=== PATIENT | female | born 1995 | race Caucasian/White ===

== ENCOUNTER 2019-04-03 13:20 | Emergency (ER) | payer BC, SELFPAY ==
--- NOTE | ~2019-04-03 | XR_ITS ---
EXAMINATION: XR wrist LT min 3V EXAM DATE: 04/03/2019 13:50 INDICATION: Initial encounter following injury, with pain of the left wrist. TECHNIQUE: Left wrist frontal, frontal with ulnar deviation, oblique and lateral projections obtained and reviewed. There is no prior study for comparison. FINDINGS: Left wrist scapholunate joint space is maintained. Mild ulnar minus variance. There are no acute fractures or dislocations identified. There is no subcutaneous gas. The soft tissue is unrem arkable. There are no radiopaque foreign bodies. IMPRESSION: No acute osseous findings. Reviewed, dictated and finalized at location B. [employer] IMPRESSION: No acute osseous findings.
[2019-04-03 13:38] VITALS: BP 131/66; PULSE 90; RESP 16; TEMP 37.1; O2SAT 100
--- NOTE | 2019-04-03 13:53 | ED.UPPEXIN ---
HPI - Extremity Injury (Upper) General Chief Complaint: Extremity Injury, Upper Stated Complaint: Fall left wrist/hand pain Time Seen by Provider: 04/03/19 13:53 Source: patient and RN notes reviewed Mode of arrival: ambulatory Limitations: no limitations History of Present Illness HPI narrative: 23-year-old female who presents to express care with complaints of injury to her left wrist area from fall which occurred this morning.Patient states pain with some swelling to the radial aspect of her left wrist, strong radial pulse, nail beds of left hand have brisk capillary refill, denies any tingling or numbness to her left hand or finger, increase pain with palpation and any movement of left wrist. Patient describes her pain as constant ache rates her pain a 8/10, has taken some Ibuprofen for her discomfort. MD complaint: injury to: left and wrist Onset (ago): hour(s) (this morning) Other Extremity Injury: Left: wrist Other injuries: none Handedness: right Place: home Severity: severe Severity scale (1-10): 8 Relieving factors: none Exacerbating factors: movement of extremity Context: fall Associated symptoms: denies other symptoms Treatments prior to arrival: NSAIDS Related Data Home Medications Medication Instructions Recorded Confirmed No Home Medications 04/03/19 04/03/19 Allergies Allergy/AdvReac Type Severity Reaction Status Date / Time No Known Allergies Allergy Verified 04/03/19 13:52 Review of Systems Review of Systems: Narrative: CONSTITUTIONAL: Denies fever, chills, or sweats. EYES: Denies visual changes, redness, or discharge. ENT: Denies rhinorrhea, congestion, sore throat, or otalgia. CARDIOVASCULAR: Denies chest pain, palpitations, or edema. RESPIRATORY: Denies cough or dyspnea. GASTROINTESTINAL: Denies abdominal pain, nausea, vomiting, or diarrhea. GENITOURINARY: Denies dysuria or hematuria. SKIN: Denies rash or itching. MUSCULOSKELETAL: Denies back pain,positive pain to left radial wrist area , or myalgia. NEUROLOGIC: Denies headache, numbness, or weakness. PSYCHIATRIC: Denies anxiety or depression. All systems reviewed & are unremarkable except as noted in HPI and below PMFSH Social History Social History (Updated 04/06/19 @ 10:25 by Sofia Joseph NP) Smoking status: Never smoker Living arrangements: with family Gender identity (if verbalized by the patient): Female Comments At time of signature, agree with nursing past medical, surgical, social and family history. There is no relevant family history pertinent to the presenting complaint Exam Narrative: Exam Narrative: GENERAL: Well-appearing, well-nourished, and in no acute distress. HEAD: Normocephalic, atraumatic. EYES: PERRLA and EOMI. ENT: Nares clear, no rhinorrhea or epistaxis. Mucous membranes moist. NECK: Supple. CHEST: Clear to auscultation. No respiratory distress. HEART: Regular rate and rhythm. No murmur heard. Normal peripheral pulses. ABDOMEN: Soft, nontender, nondistended, normal active bowel sounds. EXTREMITIES: Normal range of motion. No edema.With exception of pain and minimal swelling to the radial aspect of her left wrist. Patient has strong left radial pulse, increase pain with any movement of left wrist, denies any tingling or numbness to her left hand or fingers, nail beds left hand have brisk capillary refill. SKIN: Warm, dry, no rash. NEURO: No focal deficits. Alert and oriented x3. Course Vital Signs Vital signs: Vital Signs Temperature 37.1 C 04/03/19 13:38 Pulse Rate 90 04/03/19 13:38 Respiratory Rate 16 04/03/19 13:38 Blood Pressure 131/66 04/03/19 13:38 Pulse Oximetry 100 04/03/19 13:38 Temperature 37.1 C 04/03/19 13:38 Pulse Rate 90 04/03/19 13:38 Respiratory Rate 16 04/03/19 13:38 Blood Pressure 131/66 04/03/19 13:38 Pulse Oximetry 100 04/03/19 13:38 MDM - Extremity Injury (Upper) Differential Diagnosis Differential diagnosis: Likely sprain and stra
== END 2019-04-03 14:20 | disposition home or self-care (01) ==
PROVIDERS: Emergency Provider Registered Nurse
DX: S63.502A Unspecified sprain of left wrist, initial encounter (principal); S66.912A Strain of unspecified muscle, fascia and tendon at wrist and hand level, left hand, initial encounter; W19.XXXA Unspecified fall, initial encounter
CPT/HCPCS: 73110; 99203; G0463

== ENCOUNTER 2019-12-20 14:37 | Emergency (ER) | payer BC, SELFPAY ==
[2019-12-20 14:45] VITALS: BP 137/70; PULSE 127; RESP 20; TEMP 37; O2SAT 100
--- NOTE | 2019-12-20 15:00 | ED.GENADULT ---
HPI - General Adult General Chief complaint: Urogenital-Female Stated complaint: blood in urine and stomach maria t Time Seen by Provider: 12/20/19 15:00 Source: patient and RN notes reviewed Mode of arrival: ambulatory Limitations: no limitations History of Present Illness HPI narrative: 24-year-old female who presents to [facility] care with complaints of blood in urine, frequency, and burning with urination since 399 today. Patient denies any fevers, chills or sweats, denies any nausea or vomiting or diarrhea. Patient states that she has burning with urination describes her pain as 5/10, and states that she has noted hematuria when she urinates. Patient denies any suprapubic pain or any CVA tenderness. MD complaint: urinary symptoms Onset (ago): hour(s) (since 399 today) Location: genitals Radiation: non-radiation Severity: moderate Severity scale (1-10): 5 Quality: burning Pain Consistency: intermittent Relieving factors: none Exacerbating factors: other (urination) Associated symptoms: denies other symptoms Treatments prior to arrival: other Related Data Allergies Allergy/AdvReac Type Severity Reaction Status Date / Time No Known Allergies Allergy Verified 12/20/19 15:08 Review of Systems Review of Systems: Narrative: CONSTITUTIONAL: Denies fever, chills, or sweats. EYES: Denies visual changes, redness, or discharge. ENT: Denies rhinorrhea, congestion, sore throat, or otalgia. CARDIOVASCULAR: Denies chest pain, palpitations, or edema. RESPIRATORY: Denies cough or dyspnea. GASTROINTESTINAL: Denies abdominal pain, nausea, vomiting, or diarrhea. GENITOURINARY: Positive dysuria or hematuria. SKIN: Denies rash or itching. MUSCULOSKELETAL: Denies back pain, joint pain, or myalgia, denies any CVA tenderness NEUROLOGIC: Denies headache, numbness, or weakness. PSYCHIATRIC: Denies anxiety or depression. All systems reviewed & are unremarkable except as noted in HPI and below PMFSH Past Medical History Medical History (Updated 12/20/19 @ 18:55 by Sofia Joseph NP) No significant medical problems Surgical History Surgical History (Updated 12/20/19 @ 18:53 by Sofia Joseph NP) No history of previous surgery Social History Social History (Updated 12/20/19 @ 15:37 by Sofia Joseph NP) Smoking status: Never smoker Living arrangements: with family Occupation/Education: student Gender identity (if verbalized by the patient): Female Comments At time of signature, agree with nursing past medical, surgical, social history. There is no relevant family history pertinent to the presenting complaint Exam Narrative: Exam Narrative: GENERAL: Well-appearing, well-nourished, and in no acute distress. HEAD: Normocephalic, atraumatic. EYES: PERRLA and EOMI. ENT: Nares clear, no rhinorrhea or epistaxis. Mucous membranes moist. NECK: Supple.no lymphadenopathy CHEST: Clear to auscultation. No respiratory distress. HEART: Regular rate and rhythm. No murmur heard. Normal peripheral pulses. ABDOMEN: Soft, nontender, nondistended, normal active bowel sounds.no abdominal tenderness or CVA tenderness. EXTREMITIES: Normal range of motion. No edema. SKIN: Warm, dry, no rash. NEURO: No focal deficits. Alert and oriented x3. Course Vital Signs Vital signs: Vital Signs Temperature 37.0 C 12/20/19 14:45 Pulse Rate 127 H 12/20/19 14:45 Respiratory Rate 20 12/20/19 14:45 Blood Pressure 137/70 12/20/19 14:45 Pulse Oximetry 100 12/20/19 14:45 Temperature 37.0 C 12/20/19 14:45 Pulse Rate 127 H 12/20/19 14:45 Respiratory Rate 20 12/20/19 14:45 Blood Pressure 137/70 12/20/19 14:45 Pulse Oximetry 100 12/20/19 14:45 Medical Decision Making Differential Diagnosis Differential Diagnosis: Urinary tract infection, hematuria, burning with urination, dysuria Medical Records Medical records reviewed: Yes I reviewed the patient's medical records. Vital Signs Vital Signs: Vital Signs Tempera
== END 2019-12-20 15:47 | disposition home or self-care (01) ==
PROVIDERS: Emergency Provider Registered Nurse
DX: N39.0 Urinary tract infection, site not specified (principal)
CPT/HCPCS: 81003; 87086; 87088; 99213; G0463

== ENCOUNTER 2020-07-02 12:41 | Emergency (ER) | payer OTHER, BC, SELFPAY ==
--- NOTE | ~2020-07-02 | XR_ITS ---
XR forearm RT 2V DATE: 07/02/2020 13:03 INDICATION: Dropped 40 pound box on arm. Right forearm pain TECHNIQUE: AP and lateral views COMPARISON: None FINDINGS: No fracture or dislocation. No periosteal reaction or bone destruction. Normal alignment at the elbow and wrist joints. IMPRESSION: Negative Reviewed, dictated and finalized at location A. IMPRESSION: Negative
[2020-07-02 12:45] VITALS: BP 120/53; PULSE 77; RESP 20; TEMP 36.7; O2SAT 99
--- NOTE | 2020-07-02 13:07 | ED.UPPEXIN ---
HPI - Extremity Injury (Upper) General Chief Complaint: Extremity Injury, Upper Stated Complaint: right arm injury Time Seen by Provider: 07/02/20 13:07 Source: patient Mode of arrival: ambulatory History of Present Illness HPI narrative: PATIENT WAS AT [employer] AT [employer] AND DROPPED A 40 POUND BOX OF HER RIGHT FOREARM. PATIENT PRESENTS WITH RIGHT FOREARM PAIN. NO SWELLING NO DEFORMITY NO OPEN AREAS NO BRUISING NOTED. MD complaint: injury to: right and forearm Other Extremity Injury: Right: forearm Other injuries: none Handedness: right Place: work Severity: mild Severity scale (1-10): 2 Relieving factors: immobilization Exacerbating factors: movement of extremity Context: direct blow Associated symptoms: denies other symptoms Related Data Home Medications Medication Instructions Recorded Confirmed No Home Medications 07/02/20 07/02/20 Allergies Allergy/AdvReac Type Severity Reaction Status Date / Time No Known Allergies Allergy Verified 12/20/19 15:08 Review of Systems Review of Systems: Narrative: CONSTITUTIONAL: Denies fever, chills, or sweats. EYES: Denies visual changes, redness, or discharge. ENT: Denies rhinorrhea, congestion, sore throat, or otalgia. CARDIOVASCULAR: Denies chest pain, palpitations, or edema. RESPIRATORY: Denies cough or dyspnea. GASTROINTESTINAL: Denies abdominal pain, nausea, vomiting, or diarrhea. GENITOURINARY: Denies dysuria or hematuria. SKIN: Denies rash or itching. MUSCULOSKELETAL: Denies back pain, joint pain, or myalgia. NEUROLOGIC: Denies headache, numbness, or weakness. PSYCHIATRIC: Denies anxiety or depression. PMFSH Past Medical History Medical History (Updated 07/02/20 @ 13:13 by FEDE Hendricks) No significant medical problems Surgical History Surgical History (Updated 12/20/19 @ 18:53 by Sofia Joseph NP) No history of previous surgery Social History Social History (Updated 12/20/19 @ 15:37 by Sofia Joseph NP) Smoking status: Never smoker Gender identity (if verbalized by the patient): Female Comments At time of signature, agree with nursing past medical, surgical, social and family history. There is no relevant family history pertinent to the presenting complaint Exam Narrative: Exam Narrative: GENERAL: Well-appearing, well-nourished, and in no acute distress. HEAD: Normocephalic, atraumatic. EYES: PERRLA and EOMI. ENT: Nares clear, no rhinorrhea or epistaxis. Mucous membranes moist. NECK: Supple. CHEST: Clear to auscultation. No respiratory distress. HEART: Regular rate and rhythm. No murmur heard. Normal peripheral pulses. ABDOMEN: Soft, nontender, nondistended, normal active bowel sounds. EXTREMITIES: Normal range of motion. No edema. HAND EXAM - Skin intact, no laceration, no swelling, no erythema, normal digit cascade with flexion of fingers, median nerve, ulnar nerve, radial nerve is intact. Normal sensation of each side of each finger, can perform `ok? sign, `cross over finger test of index and middle fingers? and `thumbs up? sign, normal thumb opposition, no scissoring. good capillary refill and radial pulse. normal flexion and extension of fingers and wrist. normal supination at wrist. Normal forearm and elbow exam. SKIN: Warm, dry, no rash. NEURO: No focal deficits. Alert and oriented x3. Bernice Coma Scale Eye Opening: Spontaneous 4 Bernice Coma Scale Motor: Obeys Commands 6 Bernice Coma Scale Verbal: Oriented 5 [place] Coma Scale Total 15 Course Vital Signs Vital signs: Vital Signs Temperature 36.7 C 07/02/20 12:45 Pulse Rate 77 07/02/20 12:45 Respiratory Rate 07/02/20 12:45 Blood Pressure 120/53 L 07/02/20 12:45 Pulse Oximetry 99 07/02/20 12:45 Temperature 36.7 C 07/02/20 12:45 Pulse Rate 77 07/02/20 12:45 Respiratory Rate 20 07/02/20 12:45 Blood Pressure 120/53 L 07/02/20 12:45 Pulse Oximetry 99 07/02/20 12:45 MDM - Extremity Injury (Upper) Differential Diagno
== END 2020-07-02 13:44 | disposition home or self-care (01) ==
PROVIDERS: Emergency Provider Nurse Practitioner Family
DX: S50.11XA Contusion of right forearm, initial encounter (principal); W20.8XXA Other cause of strike by thrown, projected or falling object, initial encounter
CPT/HCPCS: 73090; 99213; G0463

== ENCOUNTER 2020-09-08 10:39 | Emergency (ER) | payer BC, SELFPAY ==
[2020-09-08 10:43] VITALS: BP 113/46; PULSE 82; RESP 20; TEMP 36.9; O2SAT 100
--- NOTE | 2020-09-08 11:03 | ED.URI ---
HPI - URI/Sore Throat General Chief Complaint: Upper Respiratory Infection Stated Complaint: sore throat Time Seen by Provider: 09/08/20 11:04 Source: patient and RN notes reviewed Mode of arrival: ambulatory Limitations: no limitations History of Present Illness HPI Narrative: 25-year-old female presents with concern for sore throat. Reports symptoms started yesterday. Reports her brother was positive for strep throat earlier this week. She denies rhinorrhea, nasal congestion, headache, nausea, vomiting, cough, fever, body aches, chills. Denies intervention. MD elicited complaint: sore throat Related Data Allergies Allergy/AdvReac Type Severity Reaction Status Date / Time No Known Allergies Allergy Verified 09/08/20 10:54 Review of Systems Review of Systems: Narrative: CONSTITUTIONAL: Denies malaise, chills, sweats, or fever. EYES: Denies visual changes, redness, or discharge. ENT: Denies rhinorrhea, congestion, sinus pain, otalgia. Reports sore throat. CARDIOVASCULAR: Denies chest pain, palpitations, or edema. RESPIRATORY: Denies cough or dyspnea. GASTROINTESTINAL: Denies abdominal pain, nausea, vomiting, diarrhea SKIN: Denies rash or itching. MUSCULOSKELETAL: Denies myalgia. NEUROLOGIC: Denies headache. All systems reviewed & are unremarkable except as noted in HPI and below PMFSH Past Medical History Medical History (Updated 09/08/20 @ 11:18 by Lubna Aden NP) No significant medical problems Surgical History Surgical History (Updated 12/20/19 @ 18:53 by Sofia Joseph NP) No history of previous surgery Social History Social History (Updated 12/20/19 @ 15:37 by Sofia Joseph NP) Smoking status: Never smoker Gender identity (if verbalized by the patient): Female Comments At time of signature, agree with nursing past medical, surgical, social and family history. There is no relevant family history pertinent to the presenting complaint Exam Narrative: Exam Narrative: GENERAL: Well-appearing, well-nourished, and in no acute distress. HEAD: Normocephalic EYES: PERRLA, conjunctivae clear ENT: Nares clear, turbinates erythematous, clear discharge. Mucous membranes moist. TM pearly frias with sharp light reflex bilaterally; no tragal tenderness. Oropharynx erythematous without lesions. Tonsils not enlarged and without exudate, no drooling, no hoarseness, no trismus, uvula midline. NECK: Supple. No lymphadenopathy CHEST: Clear to auscultation, breath sounds equal. No wheezing, rhonchi, rales, or stridor. No respiratory distress, speaks in full sentences. HEART: Regular rate and rhythm. No murmur heard. SKIN: Warm, dry, no rash. NEURO: Alert and oriented x3. PSYCH: Normal mood and affect Course Course Emergency Course: Patient is aware of diagnosis, understands and agrees to treatment plan. Anticipatory guidance given. Patient agrees to follow-up as directed and is aware of reasons to seek care at the emergency department. Portions of this record may have been created with voice recognition software Vital Signs Vital signs: Vital Signs Temperature 98.4 F 09/08/20 10:43 Pulse Rate 82 09/08/20 10:43 Respiratory Rate 20 09/08/20 10:43 Blood Pressure 113/46 L 09/08/20 10:43 Pulse Oximetry 100 09/08/20 10:43 Temperature 98.4 F 09/08/20 10:43 Pulse Rate 82 09/08/20 10:43 Respiratory Rate 20 09/08/20 10:43 Blood Pressure 113/46 L 09/08/20 10:43 Pulse Oximetry 100 09/08/20 10:43 Reviewed. MDM - URI/Sore Throat MDM Narrative Medical decision making narrative: Differential diagnosis considered: Baker virus, strep pharyngitis, allergic rhinitis, upper respiratory tract infection, sinusitis, rhinosinusitis, nasopharyngitis. viral pharyngitis, otitis media, otitis externa, pneumonia, bronchitis, viral cough syndrome, viral syndrome, and influenza. Exam findings show no acute concerns or changes; patient is non-toxic appearing and is in no distress. Patient is ap
== END 2020-09-08 11:22 | disposition home or self-care (01) ==
PROVIDERS: Emergency Provider Nurse Practitioner
DX: J02.9 Acute pharyngitis, unspecified (principal)
CPT/HCPCS: 87081; 87880; 99213; G0463

== ENCOUNTER 2021-10-27 10:04 | Emergency (ER) | payer BC, SELFPAY ==
[2021-10-27 10:11] VITALS: BP 118/64; PULSE 76; RESP 18; TEMP 36.8; O2SAT 100
--- NOTE | 2021-10-27 10:18 | ED.FEMALEGU ---
HPI - Female Genitourinary General Chief complaint: Urogenital-Female Stated complaint: Low Back Pain Time Seen by Provider: 10/27/21 10:20 Source: patient, RN notes reviewed and old records reviewed Mode of arrival: ambulatory Limitations: no limitations History of Present Illness HPI Narrative: 26-year-old female presents to the [facility] with complaints of right lower back pain for 2 to 3 days. No treatment prior to arrival. Patient denies any trauma. No saddle anesthesia. No midline tenderness, no loss or retention of bowel or bladder. Walks with a normal gait. Related Data Allergies Allergy/AdvReac Type Severity Reaction Status Date / Time No Known Allergies Allergy Verified 09/08/20 10:54 Review of Systems Review of Systems: All systems reviewed & are unremarkable except as noted in HPI and below Constitutional: Constitutional: Reports no additional constitutional complaints, Denies chills and Denies fever(s) Eyes: Eyes: Reports no additional eye complaints ENT: Reports system reviewed and no additional complaints, except as documented Cardiovascular: Cardiovascular: Reports no additional cardiovascular complaints Respiratory: Respiratory: Reports no additional respiratory complaints Gastrointestinal: Gastrointestinal: Reports no additional gastrointestinal complaints Genitourinary: Genitourinary: Reports as per HPI (Urinary frequency) Musculoskeletal: Musculoskeletal: Reports as per HPI and Reports back pain Integumentary/Breasts: Skin/Breast: Reports system reviewed and no additional complaints, except as docu Neurologic: Reports system reviewed and no additional complaints, except as documented Psychiatric: Psychiatric: Reports no additional psychiatric complaints Allergic/Immunologic: Allergic/Immunologic: Reports no additional allergic/immunologic complaints PMFSH Past Medical History Medical History No significant medical problems Surgical History Surgical History No history of previous surgery Social History Social History Smoking status: Never smoker Gender identity (if verbalized by the patient): Female Comments At the time of my signature, I reviewed and agree with the nursing past medical, surgical, social, and family history. There is no relevant family history pertinent to the patient complaint. Exam Const: General: healthy appearing, no acute distress and alert Nutritional Appearance: well nourished Orientation/consciousness: patient oriented x3 Limitations: no limitations HENMT: Head: normal to inspection Ears: external ears normal Eyes: General: appearance normal, both eyes and all related structures Pupils: Equal, round and reactive pupils present Neck: Neck: normal visual inspection, no lymphadenopathy and no meningeal signs Chest: Chest palpation & inspection: normal inspection of the chest Resp: Effort & Inspection: normal respiratory effort and no use of accessory muscles Auscultation: clear to auscultation bilaterally, no crackles, no rales, no rhonchi and no wheezes Cardio: Rate: regular rate Rhythm: regular rhythm GI: GI Palp: Yes Soft to palpation and No Tenderness to palpation present (GI) Back/Spine/Pelvis: Cervical Spine: normal cervical lordosis Thoracic/Lumbar Spine: thoracic and lumbar spine normal to inspection Skin: General skin exam: normal color Rashes: no rashes Wounds: no wounds Neuro: General: patient oriented x3, moves all extremities, no meningeal signs and no focal motor deficits Cranial nerves: Yes Equal, round and reactive pupils present Speech: normal speech Gait exam (Neuro): Normal gait present Extrem: General: normal to inspection, full ROM and capillary refill normal Psych: Appearance: grossly normal and well kempt Mental Status: mental status grossly nalini
== END 2021-10-27 10:35 | disposition home or self-care (01) ==
PROVIDERS: Emergency Provider Nurse Practitioner
DX: M54.50 Low back pain, unspecified (principal)
CPT/HCPCS: 81003; 99213; G0463

== ENCOUNTER 2022-03-16 16:05 | Emergency (ER) | payer BC, SELFPAY ==
--- NOTE | 2022-03-16 16:10 | ED.FEMALEGU ---
HPI - Female Genitourinary General Chief complaint: Urogenital-Female Stated complaint: blood in urine Time Seen by Provider: 03/16/22 16:38 Source: patient, RN notes reviewed and old records reviewed Mode of arrival: ambulatory Limitations: no limitations History of Present Illness HPI Narrative: 26-year-old female presents to the [facility] with blood in her urine. Patient denies any other symptoms. patient denies any CVA tenderness. No chest pain. No burning with urination. Denies frequency urgency. No abdominal pain. seen at [facility] prescribe Marlo and Razia For a intestinal infection 3-4 days ago. Related Data Home Medications Medication Instructions Recorded Confirmed ciprofloxacin HCl 500 mg tablet 500 mg PO BID 03/16/22 03/16/22 hydrocodone 5 mg-acetaminophen 325 1 tablet PO Q6-8H PRN Pain 03/16/22 03/16/22 mg tablet metronidazole 500 mg tablet 500 mg PO TID 03/16/22 03/16/22 Allergies Allergy/AdvReac Type Severity Reaction Status Date / Time No Known Allergies Allergy Verified 03/16/22 16:15 Review of Systems Review of Systems: All systems reviewed & are unremarkable except as noted in HPI and below Constitutional: Constitutional: Reports no additional constitutional complaints Eyes: Eyes: Reports no additional eye complaints ENT: Reports system reviewed and no additional complaints, except as documented Cardiovascular: Cardiovascular: Reports no additional cardiovascular complaints, Denies chest pain and Denies dyspnea Respiratory: Respiratory: Reports no additional respiratory complaints, Denies chest congestion, Denies cough and Denies dyspnea Gastrointestinal: Gastrointestinal: Reports no additional gastrointestinal complaints, Denies abdominal pain, Denies nausea and Denies vomiting Genitourinary: Genitourinary: Reports as per HPI Musculoskeletal: Musculoskeletal: Reports no additional musculoskeletal complaints Integumentary/Breasts: Skin/Breast: Reports system reviewed and no additional complaints, except as docu Neurologic: Reports system reviewed and no additional complaints, except as documented Psychiatric: Psychiatric: Reports no additional psychiatric complaints Allergic/Immunologic: Allergic/Immunologic: Reports no additional allergic/immunologic complaints PMFSH Past Medical History Medical History No significant medical problems Surgical History Surgical History No history of previous surgery Social History Social History Smoking status: Never smoker Gender identity (if verbalized by the patient): Female Comments At the time of my signature, I reviewed and agree with the nursing past medical, surgical, social, and family history. There is no relevant family history pertinent to the patient complaint. Exam Const: General: cooperative, healthy appearing, comfortable, no acute distress, well developed, alert and well nourished Nutritional Appearance: well nourished Orientation/consciousness: patient oriented x3 Limitations: no limitations HENMT: Head: normal to inspection Ears: hearing grossly normal bilaterally and external ears normal Face/Nose/Sinus: Normal external nose present, Normal nares present, Normal nasal mucous membranes and turbinates present and normal facial exam Face and sinus: normal facial exam Mouth: Yes Normal oral and palatal mucosa present, Yes lip normal and Yes moist mucous membranes Throat: posterior oropharynx normal and uvula midline Eyes: General: appearance normal, both eyes and all related structures Alignment and Position: alignment normal Periorbital: periorbital findings normal Conjunctivae: conjunctivae normal Pupils: Equal, round and reactive pupils present EOM: EOMs intact bilaterally Neck: Neck: normal visual inspection, full ROM, no lymphadenop
[2022-03-16 16:13] VITALS: BP 131/85; PULSE 98; RESP 16; TEMP 36.9; O2SAT 100
== END 2022-03-16 16:51 | disposition home or self-care (01) ==
PROVIDERS: Emergency Provider Nurse Practitioner
DX: R31.9 Hematuria, unspecified (principal)
CPT/HCPCS: 81003; 87086; 99213; G0463

== ENCOUNTER 2022-07-02 08:02 | Emergency (ER) | payer BC, SELFPAY ==
--- NOTE | ~2022-07-02 | XR_ITS ---
EXAMINATION: XR wrist LT min 3V DATE: 07/02/2022 08:27 INDICATION: Left wrist injury and pain. TECHNIQUE: 4 views of left wrist were obtained. COMPARISON: Left wrist radiographs 04/03/2019 FINDINGS: Bone alignment is normal. No fracture. Joint spaces are normal. IMPRESSION: 1. Normal left wrist. Reviewed, dictated and finalized at location A. IMPRESSION: 1. Normal left wrist.
[2022-07-02 08:10] VITALS: BP 106/61; PULSE 77; RESP 20; TEMP 37.1; O2SAT 100
--- NOTE | 2022-07-02 08:13 | ED.UPPEXIN ---
HPI - Extremity Injury (Upper) General Chief Complaint: Extremity Injury, Upper Stated Complaint: Fall Injury/Left Wrist Time Seen by Provider: 07/02/22 08:13 Source: patient and RN notes reviewed History of Present Illness HPI narrative: Patient is a 27-year-old female presents to urgent care with complaints of left wrist pain due to fall. Patient is left-hand dominant. States that she fell over her dog this morning catching herself with her left hand. Patient has not done anything prior to arrival for pain. No other acute complaints. No acute distress noted. Patient aware of the plan of care. Some parts of this dictation were generated by voice recognition software and may contain typographical and/or grammatical inaccuracies. Related Data Home Medications Medication Instructions Recorded Confirmed No Home Medications 07/02/22 07/02/22 Allergies Allergy/AdvReac Type Severity Reaction Status Date / Time No Known Allergies Allergy Verified 07/02/22 08:27 Review of Systems Review of Systems: CONSTITUTIONAL: Denies fever, chills, or sweats. EYES: Denies visual changes, redness, or discharge. ENT: Denies rhinorrhea, congestion, sore throat, or otalgia. CARDIOVASCULAR: Denies chest pain, palpitations, or edema. RESPIRATORY: Denies cough or dyspnea. GASTROINTESTINAL: Denies abdominal pain, nausea, vomiting, or diarrhea. GENITOURINARY: Denies dysuria or hematuria. SKIN: Denies rash or itching. MUSCULOSKELETAL: Reports of left wrist pain due to fall NEUROLOGIC: Denies headache, numbness, or weakness. PSYCHIATRIC: Denies anxiety or depression. All other systems reviewed are negative, except as documented in HPI. [facility] Past Medical History Medical History No significant medical problems Surgical History Surgical History No history of previous surgery Social History Social History Smoking status: Never smoker Living arrangements: with family Occupation/Education: student Gender identity (if verbalized by the patient): Female Comments At the time of my signature, I reviewed and agree with the nursing past medical, surgical, social, and family history. There is no relevant family history pertinent to the patient complaint. Exam Narrative: GENERAL: This is a well-nourished, well-developed patient, in no apparent distress. HEAD: normocephalic, atraumatic. EYES: PERRL. Sclera clear/white. Vision is grossly intact. EARS: External ears normal, NOSE: External nose normal with no obvious nasal discharge, nares without redness, no rhinorrhea. THROAT: Mucous membranes moist NECK: Neck supple SKIN: warm, intact with no suspicious lesions or rash, good texture and turgor. NEURO: awake, alert, and oriented to person, place and time. There were no obvious focal neurologic abnormalities. EXTREMITIES: No obvious fracture deformity noted to the left breast. No edema/erythema/ecchymosis noted to the affected extremity. Positive strong left radial pulse with capillary refill less than 2 seconds. Range of motion limited due to pain. Course Course Level of Care: Express Care Visit Vital Signs Vital signs: Vital Signs Temperature 98.8 F 07/02/22 08:10 Pulse Rate 77 07/02/22 08:10 Respiratory Rate 20 07/02/22 08:10 Blood Pressure 106/61 07/02/22 08:10 Pulse Oximetry 100 07/02/22 08:10 Oxygen Delivery Room Air 07/02/22 08:10 Temperature 98.8 F 07/02/22 08:10 Pulse Rate 77 07/02/22 08:10 Respiratory Rate 20 07/02/22 08:10 Blood Pressure 106/61 07/02/22 08:10 Pulse Oximetry 100 07/02/22 08:10 Oxygen Delivery Room Air 07/02/22 08:10 Reviewed MDM - Extremity Injury (Upper) MDM Narrative Medical decision making narrative: Reviewed x-ray results with the patient. She is aware that x-ray was negativ
== END 2022-07-02 08:52 | disposition home or self-care (01) ==
PROVIDERS: Emergency Provider Nurse Practitioner Family
DX: S63.502A Unspecified sprain of left wrist, initial encounter (principal); S66.912A Strain of unspecified muscle, fascia and tendon at wrist and hand level, left hand, initial encounter; W01.0XXA Fall on same level from slipping, tripping and stumbling without subsequent striking against object, initial encounter
CPT/HCPCS: 73110; 99213; G0463

== ENCOUNTER 2023-02-15 09:28 | Emergency (ER) | payer BC, SELFPAY ==
[2023-02-15 09:33] VITALS: BP 126/62; PULSE 85; RESP 18; TEMP 37; O2SAT 98
--- NOTE | 2023-02-15 10:20 | ED.GENADULT ---
HPI - General Adult General Chief complaint: Upper Respiratory Infection Stated complaint: Sore Throat Source: patient, RN notes reviewed and old records reviewed Mode of arrival: ambulatory Limitations: no limitations History of Present Illness HPI narrative: 27-year-old female presents to [facility] with complaints of sore throat, myalgia, headache, nasal congestion that started yesterday. Patient denies cough, chest pain, shortness of breath, weakness, dizziness, vomiting. MD complaint: sore throat Onset (ago): day(s) (1) Related Data Home Medications Medication Instructions Recorded Confirmed No Home Medications 07/02/22 07/02/22 Allergies Allergy/AdvReac Type Severity Reaction Status Date / Time No Known Allergies Allergy Verified 07/02/22 08:27 Review of Systems Constitutional: Constitutional: Reports as per HPI, Reports body ache(s), Denies chills, Reports fatigue, Denies fever(s) and Denies headache(s) Eyes: Eyes: Reports no additional eye complaints and Denies blurry vision ENT: Reports as per HPI, Denies vertigo, Denies dizziness, Denies ear discharge, Denies otalgia, Denies facial pain, Denies headache(s), Reports nasal congestion, Reports nasal discharge, Denies sinus pain, Denies sinus pressure and Reports sore throat Cardiovascular: Cardiovascular: Reports no additional cardiovascular complaints, Denies chest pain, Denies chest pain at rest, Denies rapid heart rate and Denies dyspnea Respiratory: Respiratory: Reports no additional respiratory complaints, Denies chest congestion, Denies cough, Denies pain on inspiration, Denies pain with cough and Denies dyspnea Gastrointestinal: Gastrointestinal: Denies abdominal pain, Denies diarrhea, Denies nausea and Denies vomiting Integumentary/Breasts: Skin/Breast: Denies rash Neurologic: Reports system reviewed and no additional complaints, except as documented, Denies vertigo, Denies dizziness and Denies headache(s) Endocrine: Endocrine: Denies fatigue PMFSH Past Medical History Medical History No significant medical problems Surgical History Surgical History No history of previous surgery Social History Social History Smoking status: Never smoker Living arrangements: with family Occupation/Education: student Gender identity (if verbalized by the patient): Female Comments At the time of my signature, I reviewed and agree with the nursing past medical, surgical, social, and family history. There is no relevant family history pertinent to the patient complaint. Exam Const: General: cooperative, healthy appearing, no acute distress and well nourished Nutritional Appearance: well nourished Orientation/consciousness: patient oriented x3 Limitations: no limitations HENMT: Head: normal to inspection and normocephalic Ears: external ears normal, TM's normal bilaterally, mastoids normal and Abnormal EAC present Face/Nose/Sinus: normal facial exam Face and sinus: normal facial exam Mouth: Yes Normal oral and palatal mucosa present, Yes oropharynx normal and Yes moist mucous membranes Throat: tonsils normal, uvula midline, posterior oropharynx abnormal erythema and no uvular edema Eyes: General: appearance normal, both eyes and all related structures Sclera: sclerae normal Pupils: Equal, round and reactive pupils present Resp: Effort & Inspection: normal respiratory effort, able to speak in complete sentences, no audible wheezes, no cough, no respiratory distress and no retractions Auscultation: clear to auscultation bilaterally, no crackles, no rales, no rhonchi and no wheezes Cardio: Rate: regular rate Rhythm: regular rhythm Skin: General skin exam: normal color and no rashes or lesions noted Neuro: General: patient oriented x3 Cranial nerves: Yes Equal, round and re
== END 2023-02-15 10:43 | disposition home or self-care (01) ==
PROVIDERS: Emergency Provider Registered Nurse
DX: J06.9 Acute upper respiratory infection, unspecified (principal); J02.9 Acute pharyngitis, unspecified; Z20.822 Contact with and (suspected) exposure to COVID-19
CPT/HCPCS: 87081; 87426; 87880; 99213; C9803; G0463

== ENCOUNTER 2023-07-25 13:49 | Emergency (ER) | payer OTHER, SELFPAY ==
[2023-07-25 13:50] VITALS: BP 144/74; PULSE 100; RESP 16; TEMP 37.2; O2SAT 100
--- NOTE | 2023-07-25 14:33 | ED.EAR ---
HPI - Ear Problem General Chief complaint: Ear Stated complaint: Left ear Time Seen by Provider: 07/25/23 14:12 Source: patient, RN notes reviewed and old records reviewed Mode of arrival: ambulatory Limitations: no limitations History of Present Illness HPI Narrative: 28-year-old female who presents to [facility] with complaints of left ear pain which started on Saturday. Patient states she just got back from [place] and had been swimming and got water in her ears all week then came home on the plane on Saturday. Patient reports that when she turns her head a certain way she gets sharp pain in her ears. Patient denies any known fevers, feels like sound is muffled in her left ear. MD Complaint: ear pain Location: left ear Duration: intermittent Severity: moderate Discharge from ear: Reports no Treatment prior to arrival: none Related Data Allergies Allergy/AdvReac Type Severity Reaction Status Date / Time No Known Allergies Allergy Verified 07/02/22 08:27 Review of Systems Review of Systems: CONSTITUTIONAL: Denies malaise, chills, sweats, or fever. EYES: Denies visual changes, redness, or discharge. ENT: Reports no rhinorrhea, congestion, sinus pain, left otalgia and no sore throat. CARDIOVASCULAR: Denies chest pain, palpitations, or edema. RESPIRATORY: Reports no cough.? Denies dyspnea. GASTROINTESTINAL: Denies abdominal pain, nausea, vomiting, diarrhea SKIN: Denies rash or itching. MUSCULOSKELETAL: Denies myalgia. NEUROLOGIC: Denies headache. All systems reviewed & are unremarkable except as noted in HPI and below PMFSH Past Medical History Medical History Asthma No significant medical problems Surgical History Surgical History No history of previous surgery Social History Social History Smoking status: Never smoker Living arrangements: with family Occupation/Education: student Gender identity (if verbalized by the patient): Female Comments At time of signature, agree with nursing past medical, surgical, social and family history. There is no relevant family history pertinent to the presenting complaint Exam Narrative: GENERAL: Well-appearing, well-nourished, and in no acute distress. HEAD: Normocephalic EYES: PERRLA, conjunctivae clear ENT: Nares clear, turbinates edematous and erythematous, clear discharge. Mucous membranes moist. Left TM red and bulging, RightTM pearly frias with dull light reflex ; no tragal tenderness. Oropharynx erythematous without lesions. Tonsils not enlarged and without exudate, no drooling, no hoarseness, no trismus, uvula midline. NECK: Supple. No lymphadenopathy CHEST: Clear to auscultation, breath sounds equal. No wheezing, rhonchi, rales, or stridor. No respiratory distress, speaks in full sentences.SAO2 100% on room air HEART: Regular rate and rhythm. No murmur heard. SKIN: Warm, dry, no rash. NEURO: Alert and oriented x3. PSYCH: Normal mood and affect Course Course Emergency Course: Patient is aware of diagnosis, understands and agrees to treatment plan.? Anticipatory guidance given.? Patient agrees to follow-up as directed and is aware of reasons to seek care at the emergency department. Portions of this record may have been created with voice recognition software Level of Care: Express Care Visit Vital Signs Vital signs: Vital Signs Temperature 37.2 C 07/25/23 13:50 Pulse Rate 100 07/25/23 13:50 Respiratory Rate 16 07/25/23 13:50 Blood Pressure 144/74 H 07/25/23 13:50 Pulse Oximetry 100 07/25/23 13:50 Oxygen Delivery Room Air 07/25/23 13:50 Temperature 37.2 C 07/25/23 13:50 Pulse Rate 100 07/25/23 13:50 Respiratory Rate 16 07/25/23 13:50 Blood Pressure 144/74 H 07/25/23 13:50 Pulse Oximetry 100 07/25/23 13:50 O
== END 2023-07-25 14:48 | disposition home or self-care (01) ==
PROVIDERS: Emergency Provider Registered Nurse; PCP Family Medicine
DX: H66.92 Otitis media, unspecified, left ear (principal); J45.909 Unspecified asthma, uncomplicated
CPT/HCPCS: 99213; G0463

== ENCOUNTER 2023-12-16 11:15 | Emergency (ER) | payer OTHER, SELFPAY ==
[2023-12-16 11:20] VITALS: BP 131/65; PULSE 79; RESP 18; TEMP 36.9; O2SAT 100
--- NOTE | 2023-12-16 11:31 | ED.URI ---
HPI - URI/Sore Throat General Chief Complaint: Upper Respiratory Infection Stated Complaint: throat Time Seen by Provider: 12/16/23 11:31 Source: patient, RN notes reviewed and old records reviewed Mode of arrival: ambulatory Limitations: no limitations History of Present Illness HPI Narrative: 28 year old female presents to [facility] care with complaints of sore throat and left neck pain since yesterday morning with increased symptoms this morning. Patient reports that she has not had any fevers, chills or sweats reports increased pain with swallowing. Patient denies any sinus congestion or drainage or any ear pain or cough.Patient reports that she has been taking Ibuprofen for her discomfort. MD elicited complaint: sore throat Onset (ago): day(s) (1) Pain scale (0-10): 7 Able to tolerate fluids by mouth: Yes Exacerbating factors: swallowing Treatments prior to arrival: ibuprofen Related Data Allergies Allergy/AdvReac Type Severity Reaction Status Date / Time No Known Allergies Allergy Verified 07/02/22 08:27 Review of Systems Review of Systems: CONSTITUTIONAL: Reports malaise, no chills, sweats, or fever. EYES: Denies visual changes, redness, or discharge. ENT: Reports no rhinorrhea, congestion, sinus pain,no otalgia and positive for sore throat. CARDIOVASCULAR: Denies chest pain, palpitations, or edema. RESPIRATORY: Reports no cough.? Denies dyspnea. GASTROINTESTINAL: Denies abdominal pain, nausea, vomiting, diarrhea SKIN: Denies rash or itching. MUSCULOSKELETAL: Denies myalgia. NEUROLOGIC: Denies headache. All systems reviewed & are unremarkable except as noted in HPI and below PMFSH Past Medical History Medical History Asthma No significant medical problems Surgical History Surgical History No history of previous surgery Social History Social History Smoking status: Never smoker Living arrangements: with family Occupation/Education: student Gender identity (if verbalized by the patient): Female Comments At time of signature, agree with nursing past medical, surgical, social and family history. There is no relevant family history pertinent to the presenting complaint Exam Narrative: GENERAL: Well-appearing, well-nourished, and in no acute distress. HEAD: Normocephalic EYES: PERRLA, conjunctivae clear ENT: Nares clear, turbinates edematous and erythematous, clear discharge. Mucous membranes moist. TM pearly frias with dull light reflex bilaterally; no tragal tenderness. Oropharynx erythematous without lesions. Tonsils enlarged and with white exudates left tonsil, no drooling, no hoarseness, no trismus, uvula midline. NECK: Supple.left lymphadenopathy and neck tenderness. CHEST: Clear to auscultation, breath sounds equal. No wheezing, rhonchi, rales, or stridor. No respiratory distress, speaks in full sentences.SAO2 100% on room air HEART: Regular rate and rhythm. No murmur heard. SKIN: Warm, dry, no rash. NEURO: Alert and oriented x3. PSYCH: Normal mood and affect Course Course Emergency Course: Patient is aware of diagnosis, understands and agrees to treatment plan.? Anticipatory guidance given.? Patient agrees to follow-up as directed and is aware of reasons to seek care at the emergency department. Portions of this record may have been created with voice recognition software Level of Care: Express Care Visit Vital Signs Vital signs: Vital Signs Temperature 36.9 C 12/16/23 11:20 Pulse Rate 79 12/16/23 11:20 Respiratory Rate 18 12/16/23 11:20 Blood Pressure 131/65 12/16/23 11:20 Pulse Oximetry 100 12/16/23 11:20 Oxygen Delivery Room Air 12/16/23 11:20 Temperature 36.9 C 12/16/23 11:20 Pulse Rate 79 12/16/23 11:20 Respiratory Rate 18 12/16/23 11:20 Bloo
[2023-12-16 11:37] LABS: EDSTREPNEGPOS1 Negative (Negative)
== END 2023-12-16 11:48 | disposition home or self-care (01) ==
PROVIDERS: Emergency Provider Registered Nurse; PCP Family Medicine
DX: J03.90 Acute tonsillitis, unspecified (principal); J45.909 Unspecified asthma, uncomplicated
CPT/HCPCS: 87081; 87880; 99213; G0463

== ENCOUNTER 2024-03-19 08:30 | Emergency (ER) | payer OTHER, SELFPAY ==
[2024-03-19 08:38] VITALS: BP 127/82; PULSE 128; RESP 20; TEMP 37.6; O2SAT 100
--- NOTE | 2024-03-19 09:09 | ED.URI ---
HPI - URI/Sore Throat General Chief Complaint: Upper Respiratory Infection Stated Complaint: cough/not feeling well Time Seen by Provider: 03/19/24 09:00 Source: patient, RN notes reviewed and old records reviewed Mode of arrival: ambulatory Limitations: no limitations History of Present Illness HPI Narrative: 28 year old female who presents to [place] [facility] care with complaints of cough starting yesterday, with cough causing some discomfort to her chest. Patient reports no shortness of breath SAO2 100% on room air with no tachypnea or any retractions noted. Patient reports that she has has had some fevers but has not taken any OTC medications since she has started new medication for her migraines not sure what is safe. Patient reports that she feels bad and she hurts all over. Patient reports no sinus congestion or feelings of drainage or sore throat. MD elicited complaint: fever, cough and other (body aches) Pertinent past history: asthma Onset (ago): day(s) (since yesterday) Severity: moderate Able to tolerate fluids by mouth: Yes Treatments prior to arrival: none Related Data Home Medications ?Medication ?Instructions ?Recorded ?Confirmed ?Last Taken ?Type amitriptyline 25 mg tablet mg 03/19/24 Unknown History Allergies Allergy/AdvReac Type Severity Reaction Status Date / Time No Known Allergies Allergy Verified 07/02/22 08:27 Review of Systems Review of Systems: CONSTITUTIONAL: Reports malaise, chills, sweats, or fever. EYES: Denies visual changes, redness, or discharge. ENT: Reports no rhinorrhea, congestion, sinus pain, otalgia and sore throat. CARDIOVASCULAR: Denies chest pain, palpitations, or edema. RESPIRATORY: Reports cough.? Denies dyspnea.reports soreness to chest with cough GASTROINTESTINAL: Denies abdominal pain, nausea, vomiting, diarrhea SKIN: Denies rash or itching. MUSCULOSKELETAL: Reports myalgia. NEUROLOGIC: Denies headache. All systems reviewed & are unremarkable except as noted in HPI and below PMFSH Past Medical History Medical History Hx of migraines Asthma No significant medical problems Surgical History Surgical History No history of previous surgery Social History Social History Smoking status: Never smoker Living arrangements: with family Occupation/Education: student Gender identity (if verbalized by the patient): Female Comments At time of signature, agree with nursing past medical, surgical, social and family history. There is no relevant family history pertinent to the presenting complaint Exam Narrative: GENERAL: Well-appearing, well-nourished, and in no acute distress. HEAD: Normocephalic EYES: PERRLA, conjunctivae clear ENT: Nares clear, turbinates edematous and erythematous, clear discharge. Mucous membranes moist. TM pearly frias with dull light reflex bilaterally; no tragal tenderness. Oropharynx erythematous without lesions. Tonsils not enlarged and without exudate, no drooling, no hoarseness, no trismus, uvula midline. NECK: Supple. No lymphadenopathy CHEST: Clear to auscultation, breath sounds equal. No wheezing, rhonchi, rales, or stridor. No respiratory distress, speaks in full sentences.loose cough SAO2 100% on room air. HEART: Regular rate and rhythm. No murmur heard. SKIN: Warm, dry, no rash. NEURO: Alert and oriented x3. PSYCH: Normal mood and affect Course Course Emergency Course: Patient is aware of diagnosis, understands and agrees to treatment plan.? Anticipatory guidance given.? Patient agrees to follow-up as directed and is aware of reasons to seek care at the emergency department. Portions of this record may have been created with voice recognition software Level of Care: Express Care Visit Vital Signs Vital signs: Vital Signs Temperature 37.6 C H 03/19/24 08:38 Pulse Rate 128 H 03/19/24 08:38 Respiratory Rate 20 03/19/24 08:38 Blood Pressure 127/82 03/19/24 08:38 Pulse Oximetry 100 03/19/24 08:38 Oxygen Delivery Room Air 03/19/24 08:38 Temperature 37.6 C H 03/19/24 08:38 Pulse Rate 128 H 03/19/24 08:38 Respiratory Rate 20 03/19/24 08:38 Blood Pressure 127/82 03/19/24 08:38 Pulse Oximetry 100 03/19/24 08:38 Oxygen Delivery Room Air 03/19/24 08:38 Reviewed MDM - URI/Sore Throat MDM Narrative Medical decision making narrative: Differential diagnosis considered: Baker virus, strep pharyngitis, allergic rhinitis, upper respiratory tract infection, sinusitis, rhinosinusitis, nasopharyngitis. viral pharyngitis, otitis media, otitis externa, pneumonia, bronchitis, viral cough syndrome, viral syndrome, and influenza.? Exam findings show no acute concerns or changes; patient is non-toxic appearing and is in no distress.? Patient is appropriate for outpatient treatment and follow-up. Differential Diagnosis Differential diagnosis: Likely upper respiratory infection, viral infection, influenza and other (COVID) Medical Records Attestation: I reviewed the patient's medical records. Lab Data Attestation: I reviewed the patient's lab results. Lab results narrative: COVID antigen negative, Influenza A negative, Influenza B negative Labs: Lab Results 03/19/24 Range/Units 09:18 POC Influenza A Ag Negative (Negative) POC Influenza B Ag Negative (Negative) POC SARS CoV-2 Ag Negative (Negative) reviewed Critical Care Time Critical Care Time Critical Care Time: No Discharge Plan Discharge Clinical Impression: Acute cough Upper respiratory infection Qualifiers: URI type: unspecified URI Qualified Code(s): J06.9 - Acute upper respiratory infection, unspecified Patient Disposition: Home, Self-Care Condition: Stable Instructions: Upper Respiratory Infection (ED), Acute Cough (ED) Additional Instructions: Increase fluids especially juices and water [id number] cough and cold medicine of your choice for your symptoms Delsym or Robitussin cough syrup Continue your inhaler/nebulizer as directed Steroids as directed--take with food heat to the face 20-30 minutes 4-6 times a day for pain Salt water gargles, throat lozenges or throat sprays as desired If your symptoms persist, change or worsen significantly before you can contact your personal physician then please, without delay, go to the emergency department for further evaluation. Follow-up with PCP in 7-10 days or sooner if needed Follow up with PCP soon in regards to your blood pressure which is elevated above threshold for referral. Blood pressure above 120/80 may indicate pre-hypertension. Minimal elevation at 127/82 Monitor for fevers may take Tylenol or ibuprofen any fever pain Patient Language: Lithuanian Prescriptions: New prednisone 20 mg tablet 40 mg PO DAILY 5 Days Qty: 10 0RF No Action amitriptyline 25 mg tablet Follow-up/Referrals: PHYSICIAN NOT ON STAFF,NONSTAFF [Primary Care Provider] - Time of Disposition: 09:51 Quality [place] Coma Scale Eyes: Open Verbal: Oriented and Alert Motor: Follows Commands Bernice Coma Total Score: 15
[2024-03-19 09:37] LABS: EDCOVIDSCREEN Negative (Negative); EDINFLUASCREEN Negative (Negative); EDINFLUBSCREEN Negative (Negative)
== END 2024-03-19 09:55 | disposition home or self-care (01) ==
PROVIDERS: Emergency Provider Registered Nurse
DX: R05.1 Acute cough (principal); J06.9 Acute upper respiratory infection, unspecified; Z20.822 Contact with and (suspected) exposure to COVID-19; J45.909 Unspecified asthma, uncomplicated
CPT/HCPCS: 87426; 87804; 99213; G0463

== ENCOUNTER 2024-12-14 15:00 | Inpatient (IN) | payer OTHER, SELFPAY ==
[2024-12-14] VITALS (140 sets, daily range): BP systolic 73–146; BP diastolic 43–103; PULSE 33–222; TEMP 36.5–37.3; O2SAT 97–100; BMI 37.0
--- OUTSIDE RECORDS SUMMARY | 2024-12-14 15:54 | XMS_ITS | Clinical Summary ---
Author Organization [facility] Address [address] [place] [address] Phone Care Team Providers Care Production Cook Name Role Phone Provider, Not On File Primary Care Provider Unav ailable Allergies No known active allergies Medications albuterol 108 (90 Base) MCG/ACT Aerosol Solution take 2 Puffs by inhalation every 4 hours as needed (shortness of breath). 6.7 g 2 Active baclofen (LIORESAL) 10 MG Tablet TAKE 1 TABLET BY MOUTH THREE TIMES A DAY NEEDED FOR MUSCLE SPASM 2 Active ondansetron (ZOFRAN-ODT) 4 MG TABLET DISPERSIBLE Take 1 Tablet by mouth every 8 hours as needed for Nausea - 1st line. 10 Tablet 4 Active Social History Tobacco Use Types Packs/Day Years Used Date Smoking Tobacco: Never Smokeless Tobacco: Never Tobacco Cessation:Counseling Given: Not Answered Alcohol Use Standard Drinks/Week Comments Yes 0 (1 standard drink = 0.6 oz pur e alcohol) AUDIT-C Answer Date Recorded Frequency of Alcohol Consumption Monthly or less 01/09/2019 Average Number of Drinks Not on file 019 Frequency of Binge Drinking Not on file 10/2018 PHQ-2 Answer Date Recorded PHQ-2 Score 0 01/09/2019 Comments No Sex and Gender Information Value Date Recorded Sex Assigned at Not on file Legal Sex Female 10:14 PM CDT Gender Identity Not on file Sexual Orientation Not on file Last Filed Vital Signs Vital Sign Reading Time Taken Comments Blood Pressure 120/66 01/27/2024 11:46 AM [employer] Pulse 82 01/27/2024 11:46 AM [employer] Temperature 37.2 C (98.9 F) 01/27/2024 11:46 AM [employer] ATTENDANT Respiratory Rate 12 01/27/2024 11:46 AM [employer] ATTENDANT Oxygen Saturation 100% 01/27/2024 11:46 AM [employer] ATTENDANT Inhaled Oxygen Concentration - - Weight 95.3 kg (210 lb) 01/27/2024 9:38 AM [employer] ATTEND[employer] Height 172.7 cm (5' 8) 01/27/2024 9:38 AM [employer] ATTENDANT Body Mass Index 31.93 01/27/2024 9:38 AM [employer] ATTENDANT Plan of Treatment Health Maintenance Due Date Last Done Comments Hepatitis C Virus (HCV) Screening 1997 Pap Smear 2018 Influenza Immunization (#1) 2024 Respiratory Syncytial Virus (RSV) Immunization (Adult) (1 - 1-dose 75+ series) 2072 Hepatitis B Immunization Completed 998, 1997, 1997 Human Papillomavirus (HPV) Immunization Completed 04/22/2009, 12/13/2008, 10/13/2008 DTaP/Tdap/Td Immunization Discontinued 2011, 09/25/2002, 11/30/1998, Additional history exists TdaP Immunization Completed 10/10/2011 Meningococcal Immunization (ACWY) Completed 09/21/2014, 10/13/2008 Pneumococcal Immunization Combined Aged Out No longer eligible based on patient's age to complete this topic Rotavirus Immunization Aged Out No lo nger eligible based on patient's age to complete this topic SARS-COV-[address] CASTELLON, [address] [facility] Care Teams Production Cook Relationship Specialty Start Date End Date Provider, Not On File MS PCP - General 01/27/24
--- OUTSIDE RECORDS SUMMARY | 2024-12-14 15:54 | XMS_ITS | Clinical Summary ---
Author Organization [facility] Address [address] [place] [address] Care Team Providers Care Information Strategist Name Role Phone Aracelis Kendall NP Primary Care Provider Karley Crain DO Unavailable [phone] Allergies No known active allergies Medications ibuprofen-acetamin ophen 125-250 mg tablet Take 1 tablet by mouth every 8 (eight) hours As needed Active albuterol HFA (ProAir HFA) 90 mcg/actuation inhalerIndications :Acute Asthma Attack,Bronchospas m Prevention Inhale 2 puffs every 4 (four) hours as needed for wheezing or shortness of breath 1 each 4 04/23/19 24 Active Additional Information Patient not taking.Reported on 10/01/2024 SUMAtriptan (IMITREX) 50 mg tabletIndications: Migraine Take 1 tablet (50 mg total) by mouth once as needed for migraine May repeat after 2 hours. 27 tablet 4 02/11/20 24 025 Active Additional Information Patient not taking.Reported on 06/09/2024 ondansetron ODT (ZOFRAN-ODT) 4 mg disintegrating tablet Take 1 tablet (4 mg total) by mouth every 8 (eight) hours as needed 01/27/20 24 Active amitriptyline (ELAVIL) 25 mg tabletIndications: Intractable chronic migraine with aura and without status migrainosus Take 1 tablet (25 mg total) by mouth nightly 90 tablet 3 05/12/19 25 Active Additional Information Patient not taking.Reported on 10/01/2024 no.511-tihs-mczox- om3 25 mg iron-1 mg -400 mg combo pack Take by mouth Active Active Problems Problem Noted Date Diagnosed Date 05/11/2024 Assessment & Plan (05/11/2024 8:32 AM CDT): -Recent, around 11 weeks -Has a establish care with director physical therapy -Currently taking vitamin -Continue current treatment with specialist Intractable chronic migraine with aura and without status migrainosus 02/11/2024 Assessment & Plan (05/11/2024 8:33 AM CDT): -chronic, improved -patient currently takes amitriptyline 25 mg, Imitrex 50 mg as needed -Has a establish with Neurology -patient reports her migraines have significantly improved since starting amitriptyline -patient does endorse experiencing an aura dots in her vision when she has migraines -continue current treatment plan Assessment & Plan (03/20/2024 2:30 PM ENVIRONMENTAL HEALTH PHYSICIAN): -chronic, improved -patient currently takes amitriptyline 25 mg, Imitrex 50 mg as needed -Has a establish with Neurology -patient reports her migraines have significantly improved since starting the medication a couple of weeks ago -patient does endorse experiencing an aura dots in her vision when she has migraines -Will continue amitriptyline at this time, if dizziness does not improve, may consider switching amitriptyline to topiramate/Topamax -continue current treatment plan Assessment & Plan (02/11/2024 8:29 AM ENVIRONMENTAL HEALTH PHYSICIAN): -chronic, not at goal -patient currently takes Excedrin/Advil OTC -patient reports having migraine headache 3-4 migraines a week -patient does endorse experiencing an aura dots in her vision -amitriptyline 25 mg nightly as maintenance medication and Imitrex 50 mg as needed added to patient's medication regimen -referral to neurology placed -continue current treatment plan Preventative health care 04/23/2023 Assessment & Plan (05/11/2024 8:34 AM CDT): - New or chronic worsening conditions: Newly - Mental health: no significant psychiatric/mental health conditions affecting her day to day functioning - Dental health: Up to date with regular dental care and cleaning. Discussed importance of regular tooth brushing, flossing, and dental visits. - Nutrition: Stressed importance of moderation in sodium/caffeine intake, saturated fat and cholesterol, caloric balance, sufficient intake of fresh fruits, vegetables - Exercise: Stressed the importance of regular exercise - Immunizations: Age and sex appropriate immunizations reviewed and offered - Cervical Cancer screening: Up-to-date, follows with bead cutter - Breast Cancer screening: Not indicated at this time - Colon cancer screening: Not indicated at this time - Lung cancer screening: Not indicated at this time - Bone desnity/osteoporosis screening: Not indicated at this time - control: Currently Assessment & Plan (04/23/2023 11:49 AM ENVIRONMENTAL HEALTH PHYSICIAN): Doing well. BMI: 33.5 (Obese) Routine labs ordered - BMP, Lipid Preventative Screening Due: Pap Smear due, will schedule Dietary and exercise recommendations given today. Recommend exercise at least 30 minutes moderate to vigorous exercise and some strength training most days of the week. (minimum 150 minutes weekly) Discussed MyPlate recommendations and increasing fruits and vegetables Vaccines due - TDAP, FLU RTC annually for f/u Mild intermittent asthma without complication Assessment & Plan (05/11/2024 8:33 AM CDT): -chronic, controlled -patient currently prescribed albuterol rescue inhaler -patient reports their asthma is fairly well-controlled on current regimen -patient denies needing to use rescue inhaler frequently -no wheezing noted on exam -continue current treatment plan Assessment & Plan (02/11/2024 8:27 AM ENVIRONMENTAL HEALTH PHYSICIAN): -chronic, stable -patient currently prescribed albuterol rescue inhaler -patient reports their asthma is fairly well-controlled on current regimen -patient denies needing to use rescue inhaler frequently -no wheezing noted on exam -continue current treatment plan Assessment & Plan (04/23/2023 11:50 AM ENVIRONMENTAL HEALTH PHYSICIAN): Chronic and stable. Well controlled with prn Albuterol. Monitor symptoms. F/u 6 months or sooner if worsens Class 2 obesity due to exces s calories without serious comorbidity with body mass index (BMI) of 35.0 to 35.9 in adult 04/23/2023 Assessment & Plan (05/11/2024 8:19 AM CDT): Wt Readings from Last 3 Encounters: 05/11/24 105.7 kg (233 lb) 02/21/24 93 kg (205 lb) 02/11/24 99.7 kg (219 lb 12.8 oz) Body mass index is 35.4 kg/m . -Stable, not at goal of <30 bmi -Discussed recommendations for exercise at least 30 minutes moderate to vigorous exercise as tolerated most days of the week. (minimum 150 minutes weekly) -Discussed importance of well-balanced diet Assessment & Plan (03/20/2024 1:40 PM ENVIRONMENTAL HEALTH PHYSICIAN): Wt Readings from Last 3 Encounters: 02/21/24 93 kg (205 lb) 02/11/24 99.7 kg (219 lb 12.8 oz) 01/21/24 102 kg (224 lb 12.8 oz) There is no height or weight on file to calculate BMI. -Stable, not at goal of <30 bmi -Discussed recommendations for exercise at least 30 minutes moderate to vigorous exercise as tolerated most days of the week. (minimum 150 minutes weekly) -Discussed importance of well-balanced diet Assessment & Plan (02/11/2024 8:26 AM ENVIRONMENTAL HEALTH PHYSICIAN): Wt Readings from Last 3 Encounters: 02/11/24 99.7 kg (219 lb 12.8 oz) 01/21/24 102 kg (224 lb 12.8 oz) 04/23/23 96.9 kg (213 lb 9.6 oz) Body mass index is 33.39 kg/m . -Stable, not at goal of <30 bmi -Discussed recommendations for exercise at least 30 minutes moderate to vigorous exercise as tolerated most days of the week. (minimum 150 minutes weekly) -Discussed importance of well-balanced diet Anxiety 04/23/2023 Assessment & Plan (05/11/2024 8:19 AM CDT): -chronic, controlled -currently controlled without medication -patient denies any worsening of depressed mood, thoughts of harming herself or others, or worsening anxiety -encouraged patient to reach out to office if anxiety worsens -continue current treatment plan Assessment & Plan (02/11/2024 8:27 AM ENVIRONMENTAL HEALTH PHYSICIAN): -chronic, stable -currently controlled without medication -patient denies any worsening of depressed mood, thoughts of harming herself or others, or worsening anxiety -encouraged patient to reach out to office if anxiety worsens -continue current treatment plan Assessment & Plan (04/23/2023 11:51 AM ENVIRONMENTAL HEALTH PHYSICIAN): Chronic and stable. PHQ 2 score 0, ARCHIE 7 score 9. Mild anxiety Continue to monitor mood Consider counseling prn if mood worsens F/u 6 months or sooner prn Comments Yes Resolved Problems Problem Noted Date Diagnosed Date Resolved Date Acute dehydration 02/20/2022 02/11/2024 Status post wisdom tooth extraction 02/20/2022 02/11/2024 Encounters Date Type Department Care Team Description 10/31/2024 7:30 AM CDT Lab [facility] [address] [place] [address] 10/01/2024 3:15 PM CDT Office Visit [facility] [address] [place] [phone] Patricia Marcano NP Folliculitis (Primary Dx) 10/01/2024 Nurse Triage [facility] [place] [address] [facility] [address] [place] [phone] Aracelis Kendall NP from Last 3 Months Immunizations Immunization Administration Dates Next Due DTaP 09/25/2002, 9,1997,1997 ,1997 HPV, Quadrivalent 04/22/2009,12/13/2008,10/14/19 09 Hep B, Adolescent or Pediatric 02/22/1998,1997,1997 HiB 08/29/1998,1997,1997 ,1997 IPV 09/25/2002,11/30/1998,1997 ,1997 Influenza, Unspecified 02/11/2024(Deferr ed: Patient Refused),02/11/2024(Deferred: Patient Refused) MMR 09/25/2002,08/29/1998 Meningococcal Conjugate (Menveo) 09/21/2014 Meningococcal MCV4, Unspecified 10/13/2008 Tdap 05/02/2023,10/10/2011 Varicella 10/13/2008,06/01/1999 Surgical History Surgery Date Site/Laterality Comments WISDOM TOOTH EXTRACTION 2021 Medical History Medical History Date Comments Anxiety Asthma Depression Migraines Family History Medical History Relation Name Comments Allergies Brother 1 No Known Problems Brother 2 No Known Problems Father Heart attack Maternal Grandfather Bill COD pos sibly Hypertension Maternal Grandfather Bill Osteoarthritis Maternal Grandfather Bill Heart attack Maternal Grandmother Zheng COD pos sibly Hypertension Maternal Grandmother Zheng Migraines Maternal Grandmother Zheng Migraines Mother Heart attack Mother's Brother Larry No Known Problems Paternal Grandfather Arrhythmia Paternal Grandmother Diabetes Paternal Grandmother type 1 Heart disease Paternal Grandmother Relation Name Status Comments Brother 1 Alive Brother 2 Alive Father Alive Maternal Grandfather Bill Maternal Grandmother Zheng Mother Alive Mother's Brother Larry Paternal Grandfather Paternal Grandmother Alive Social History Tobacco Use Types Packs/Day Years Used Date Smoking Tobacco: Never Smokeless Tobacco: Never Tobacco Cessation:Counseling Given: Not Answered Alcohol Use Standard Drinks/Week Comments Yes 0 (1 standard drink = 0.6 oz pur e alcohol) socially AUDIT-C Answer Date Recorded Q1: How often do you have a drink containing alc ohol? Monthly or less 03/20/2024 Q2: How many drinks containi ng alcohol do you have on a typical day when you are drinking? 1 or 2 03/20/2024 Q3: How often do you have si x or more drinks on one occasion? Never 03/20/2024 PHQ-2 Answer Date Recorded PHQ-2 Total Score (If total score is 3 or more points, staff should administer the PHQ-9) 0 05/11/2024 Personal Safety Answer Date Recorded Getting School Help Needed Denies 03/07 Comments Yes Sex and Gender Information Value Date Recorded Sex Assigned at Not on file Legal Sex Female 9:18 AM CDT Gender Identity Not on file Sexual Orientation Not on file Occupation Industry Job Start Date Job End Date Not on file Not on file Not on file Not on file Obstetrics History Para Term AB IAB SAB Ectopic Multiple Livin g Live Births 1 0 0 0 0 0 0 0 0 0 0 Date Outcome GA Total Labor Labor/2nd/3rd Weight Sex Type Anes PTL Pinky A1 A5 Name Clin Current Last Filed Vital Signs Vital Sign Reading Time Taken Comments Blood Pressure 118/64 10/01/2024 3:10 PM CDT Pulse 87 10/01/2024 3:10 PM CDT Temperature 37.2 C (99 F) 10/01/2024 3:10 PM CDT Respiratory Rate 18 10/01/2024 3:10 PM CDT Oxygen Saturation 98% 10/01/2024 3:10 PM CDT Inhaled Oxygen Concentration - - Weight 103 kg (227 lb) 10/01/2024 3:10 PM CDT Height 170.2 cm (5' 7) 10/01/2024 3:10 PM CDT Body Mass Index 35.55 10/01/2024 3:10 PM CDT Plan of Treatment Health Maintenance Due Date Last Done Comments Hepatitis C Screening 1997 Pneumococcal vaccine <65 (1 of 2 - PCV) 2016 Influenza Vaccine (#1) 2024 Cervical Cancer Screening 01/20/2025 01/21/2024 Depression Screening 05/11/2025 05/11/2024, 03/20/2024, 02/11/2024, Additional history exists Regular Well Visit/Exam 18-64 05/11/2025, 01/21/2024, 04/23/2023 DTaP/Tdap/Td Vaccine (8 - Td or Tdap) 05/01/2033 05/02/2023, 10/10/2011, 09/25/2002, Additional history exists Hepatitis B Screening Completed 02/22/1998 , 1997, 1997 Varicella Vaccines Completed 10/13/2008, 06/01/1999 HPV Vaccines Completed 04/22/2009, 12/02, 10/13/2008 Procedures Procedure Name Priority Date/Time Associated Diagnosis Comments GTT 50GM 1HR GESTATIONAL SCREEN Routine 10/31/2024 8:51 AM CDT CBC WITHOUT DIFFERENTIAL Routine 10/31/2024 8:51 AM CDT RPR Routine 10/31/2024 8:51 AM CDT HIV 1/2 ANTIBODY PLUS P24 ANTIGEN Routine 10/31/2024 8:51 AM CDT PAP WITH REFLEX TO HIGH RISK HPV Routine 01/21/2024 9:19 AM ENVIRONMENTAL HEALTH PHYSICIAN from Last 3 Months or Most Recently Relevant to Health Maintenance Results * GTT 50gm 1hr gestational screen (10/31/2024 8:51 AM CDT) GTT 50g gest screen 93 <=140 mg/dL [facility] ([place]) Comment: Interpretive Data Used for suspected gestational diabetes. The screening test uses 50 grams of glucose with sample obtained 1 hr later. Normal range: < 140 mg/dL. A glucose value of >140 mg/dL generally indicates the need for a full diagnostic tolerance test. Reference Interval Info: Diabetes Care 2005, Vol 28. Supplement 1,S37-S42. Report of the Expert Committee on the Diagnosis and Classification of Diabetes Mellitus. Diabetes Care 2020; 43(Supplement 1):S14-31. Current interpretive data was last revised on 2020. Blood 10/31/2024 8:51 AM CDT 10/31/2024 9:12 AM CDT Fantasma Croft MD LAB BLOOD ORDERABLES [facility] al Result [facility] ([place]) [address] [facility] Department of Laboratories [place], [place] [id number] * HIV 1/2 Antibody plus p24 Antigen Blood (10/31/2024 8:51 AM CDT) HIV 1/2 ab + p24 ag Nonreactive Nonreactive Comment: Nonreactive for HIV-1 antigen and HIV-1/HIV-2 antibodies. No laboratory evidence of HIV infection. If acute HIV infection is suspected, consider testing for HIV-1 RNA. Testing performed by: [facility], [address] [place] [address]., [id number] Blood 10/31/2024 8:5 1 AM CDT 10/31/2024 1:34 PM CDT Fantasma Croft MD LAB MICROBIOLOGY - GENER AL ORDERABLES Final Result [facility] ([place]) [address] [place] [address] * RPR Blood (10/31/2024 8:51 AM CDT) Pathologist [facility] RPR Nonreactive Nonreactive Comment:Testing performed by : [facility], [address] [place] [address]., [id number] Blood 10/31/2024 8:51 AM CDT 10/31/2024 1:34 PM CDT Fantasma Croft MD LAB MICROBIOLOGY - GENER AL ORDERABLES Final Result Performing Organization Address City/[facility]/ZIP Co de Phone Number [facility] ([place]) [address] [place] [address] * (ABNORMAL) CBC without differential (10/31/2024 8:51 AM CDT) WBC 11.40(H) 3.80 - 9.90 K/cumm Hgb 11.5(L) 11.9 - 15.5 g/dL [facility] ([place]) Hct 35.0(L) 35.6 - 45.5 % [facility] ([place]) Plt 351 150 - 400 K/cumm [facility] ([place]) MPV 9.3 9.1 - 12.3 fL [facility] ([place]) RBC 3.70(L) 3.90 - 5.20 M/cumm [facility] ([place]) MCV 94.6 81.3 - 96.4 fL [facility] ([place]) MCH 31.1 27.1 - 33.3 pg [facility] ([place]) MCHC 32.9 32.3 - 35.7 g/dL [facility] ([place]) RDW CV 11.9 11.1 - 14.9 % [facility] ([place]) RDW SD 41.0 35.7 - 48.1 fL [facility] ([facility]) NRBC abs 0.00 0.00 - 0.01 K/cumm [facility] ([place]) Blood 10/31/2024 8:51 AM CDT 10/31/2024 9:12 AM CDT us Fantasma Croft MD LAB BLOOD ORDERABLES Fin al Result [facility] ([place]) [address] [facility] [place] [address] * Pap with reflex to High Risk HPV and Genotyping (Cytology Component) (01/21/2024 9:19 AM ENVIRONMENTAL HEALTH PHYSICIAN) Pap test 01/21/2024 9:19 AM ENVIRONMENTAL HEALTH PHYSICIAN 01/21/2024 9:19 AM ENVIRONMENTAL HEALTH PHYSICIAN Narrative 01/23/2024 1:33 PM ENVIRONMENTAL HEALTH PHYSICIAN [facility] Department of Pathology [address] [place] [address] Final Report Note to Patients: This report may contain a detailed description of human tissue sent by a health care provider to the laboratory for pathologic evaluation. The content of this report is essential for diagnosis and may provide important critical findings. This information may be unfamiliar to patients to review without a medical professional present. It is advised that the patient review this report in the presence of a health care provider who can answer questions and explain the details. Patient Name: ROSS RODRIGUEZ Address: [address] [place] [address] Gender: F : 1995 (Age: 28) Service: Location: N : [id number] [facility] #: [id number] Patient Type: [facility] SPECIMEN Taken: 01/21/2024 Received: 01/21/2024 Accessioned:: 01/22/2024 Reported: 01/23/2024 Physician(s): Karley E. ParasDerian reaves D.O. Diagnosis: SOURCE OF SPECIMEN Imaged Thinprep Pap Test w/ Reflex HPV - [place] Applier Cytologic Material: STATEMENT OF ADEQUACY - Specimen satisfactory for interpretation; endocervical/transformation zone component absent or insufficient GENERAL CATEGORIZATION: - Negative for intraepithelial lesion or malignancy ANITA Restrepo(ASCP) Report Electronically Reviewed and Signed Out By ANITA Restrepo(ASCP) 01/23/2024 13:33:35Specimen(s) Received: A: Imaged Thinprep Pap Test w/ Reflex HPV - [place] Applier Cytologic Material Clinical History: Last Menstrual Period: 01/10/24 The Pap test is a screening test used to aid in the detection of cervical cancer and its precursors. It should not be the sole means by which malignant and premalignant lesions are diagnosed. Both false negative and false positive results may occur. It also has poor sensitivity for the detection of endometrial lesions and should not be used to evaluate suspected endometrial abnormalities. For these reasons it is most important to obtain Pap tests at regular intervals. The performance characteristics of some immunohistochemical stains, fluorescence in-situ hybridization tests and immunophenotyping by flow cytometry cited in this report (if any) were determined by the Surgical Pathology Department at [facility] as part of an ongoing manager quality systems program and in compliance with federally mandated regulations drawn from the Clinical Laboratory Improvement Act of 1988 (CLIA '88). Some of these tests rely on the use of analyte specific reagents and are subject to specific labeling requirements by the US Food and Drug Administration. Such diagnostic tests may only be performed in a facility that is certified by the Department of Health and Human Services as a high complexity laboratory under CLIA '88. The FDA has determined that such clearance or approval is not necessary. This test is used for clinical purposes. It should not be regarded as investigational or for research. Nevertheless, federal rules concerning the medical use of analyte specific reagents require that the following disclaimer be attached to the report: This test was developed and its performance characteristics determined by the Surgical Pathology Department [facility]. It has not been cleared or approved by the U. S. Food and Drug Administration. Karley Crain DO LAB CYTOLOGY ORDERABLES Final Result from Last 3 Months or Most Recently Relevant to Health Maintenance Insurance [facility] H[facility] Care Teams Information Strategist Relationship Specialty Start Date End Date Aracelis Kendall, [employer] [address] [place] [address] PCP - General Family Medicine 02/11/24 Karley Crain DO [address] [place] [address] Consulting Physician Obstetrics and Gynecology 02/11/24
[2024-12-14 16:28] LABS: Hematocrit 35.6 % (37.0-47.0); Hemoglobin 11.9 g/dL (12.0-15.0); Immature Granulocyte Percent A 0.6 % (0-0.5); Lymphocytes Absolute Auto 1.72 K/mm3 (0.9-3.2); Mean Corpuscular HGB Conc 33.4 g/dl (32-36); Mean Corpuscular Hemoglobin 30.1 pg (26-34); Mean Corpuscular Volume 89.9 fl (80-100); Nucleated Red Blood Cells Absolute Auto 0.000 K/mm3 (0.0-0.012); Nucleated Red Blood Cells Perc 0.0 % (0.0-0.2); Platelet Count Result 358 k/mm3 (150-375); Red Blood Count 3.96 M/mm3 (4.2-5.4); White Blood Count 12.4 K/mm3 (4.5-10.0)
[2024-12-14] MEDS: OXYTOCIN 30 UNITS/NS 500 ML 30 UNITS/500 ML BAG IV CONT (16:39)
[2024-12-14] MEDS: LACTATED RINGERS 1,000 ML 125 ML IV CONT ×3 (16:40→21:56)
--- NOTE | 2024-12-14 17:01 | LDADM ---
This patient, Kayla Navarrete, was admitted to Labor/Delivery/Recovery 107 on 12/14/24 at 1459. Plans for labor, pain management and were discussed with patient. Patient/family oriented to hospital policies and general routines including ID bracelet, bed and alarms, visiting hours, pain management, procedures, bathroom and other care routines, personal items, smoking policy, room service/diet and guest tray routines, security routines, and visiting hours. Patient/Family are encouraged to report perceived risks to care and to ask questions if they do not understand what they are told or what they should do. See OBIX for further documentation.
[2024-12-14 17:24] LABS: Syphilis IgG/IgM Antibody Non-Reactive (Nonreactive)
--- NOTE | 2024-12-14 20:09 | WPDANESEPPF ---
Anes - Initial Pre Proc Eval Procedure: Labor epidural Date/Time: 12/14/24 20:09 Surgeon: Marshall Arenas MD Pre Op Diagnosis: Labor pain Patient Data Age: 29 Gender: F Height: 1.7 m Weight: 107.5 kg Last Vital Signs Temp 37.3 C 12/14/24 18:30 Pulse 90 12/14/24 20:01 BP 118/69 12/14/24 20:01 Pulse Ox 99 12/14/24 20:04 O2 Del Method Room Air 12/14/24 16:53 Allergies Allergy/AdvReac Type Severity Reaction Status Date / Time No Known Allergies Allergy Verified 12/14/24 17:14 Home Medications ?Medication ?Instructions ?Recorded ?Confirmed ?Type aspirin 81 mg capsule 81 mg PO DAILY #90 caps 06/16/24 12/08/24 Rx vits no.126-ferrous fum tablet PO 06/16/24 11/17/24 History 28 mg iron-folic acid 800 mcg tablet (Classic ) Laboratory Tests 12/14/24 16:03 WBC 12.4 H K/mm3 (4.5-10.0) RBC 3.96 L M/mm3 (4.2-5.4) Hgb 11.9 L g/dL (12.0-15.0) Hct 35.6 L % (37.0-47.0) MCV 89.9 fl (80-100) MCH 30.1 pg (26-34) MCHC 33.4 g/dl (32-36) RDW 11.9 % (11.5-14.5) Plt Count 358 k/mm3 (150-375) MPV 9.9 fl (7.4-10.4) Immature Gran % (Auto) 0.6 H % (0-0.5) Neut % (Auto) 74.5 H % (45.5-73.1) Lymph % (Auto) 13.9 L % (18.3-44.2) [place] % (Auto) 10.0 H % (2.6-8.5) Eos % (Auto) 0.7 % (0-4.4) Baso % (Auto) 0.3 % (0.2-1.2) Lymph # (Auto) 1.72 K/mm3 (0.9-3.2) [place] # (Auto) 1.2 H K/mm3 (0.1-0.6) Eos # (Auto) 0.1 K/mm3 (0-0.3) Baso # (Auto) 0.0 K/mm3 (0.0-0.1) Abs Immat Gran (auto) 0.08 H K/mm3 (0.00-0.031) Absolute Neuts (auto) 9.2 H K/mm3 (1.3-6.7) Absolute Nucleated RBC 0.000 K/mm3 (0.0-0.012) Nucleated RBC % 0.0 % (0.0-0.2) Syphilis IgG/IgM Ab Non-reactive (Nonreactive) Blood Type A Positive Antibody Screen Negative Patient hx anesthesia problems: none Family hx anesthesia problems: none Results Review: All pre-operative results and documents have been reviewed as part of the pre-operative evaluation. [facility] Past Medical History Medical History Hx of migraines Asthma Surgical History Surgical History No history of previous surgery Family History Family History Grandparent Heart disease Hypertension Social History Social History Smoking status: Never smoker Alcohol intake: former Substance use: never Substance use type: does not use Do You Feel Safe in your Home?: Yes Lack of Transportation: No Lack of Food: Never True Current Housing: I Have Housing Concerned About Future Housing: No Difficulty Paying Gas/Electric Bills: No Difficulty Paying for Meds: No Currently Unemployed: No Education: Associate Degree Difficulty w/ Childcare or Family Care: No Living arrangements: with family Occupation/Education: student Gender identity (if verbalized by the patient): Female Sexual Orientation (if Verbalized by the Patient): Straight or Heterosexual Spiritual care concerns: No Anes - Eval Final PreProcedure Day of Procedure 12/14/24 20:09 Heart: regular rate and rhythm Lungs: clear to auscultation and normal air movement Airway: Mallampati scale class II Neurological: alert and oriented ASA classification: II Anesthetic plan: proceed Anesthesia type and monitoring: regional epidural Results Review: All pre-operative results and documents have been reviewed as part of the pre-operative evaluation. Informed Consent: The patient's anesthetic plan and its attendant risks and benefits were discussed with the patient/family/POA. Questions were solicited and answers provided to the satisfaction of the patient/family/POA.
[2024-12-14] MEDS: AMPICILLIN SODIUM 2 GM in SODIUM CHLORIDE 0.9% IV 100 ML 200 ML IVPB (23:36)
[2024-12-14] MEDS: CALCIUM CARBONATE (TUMS) 500 MG (200 MG ELEMENTAL) PO (23:36)
[2024-12-15] VITALS (216 sets, daily range): BP systolic 82–137; BP diastolic 50–98; PULSE 68–161; RESP 16; TEMP 36.3–37.7; O2SAT 78–100
[2024-12-15] MEDS: ONDANSETRON INJ 4 MG/2 ML VIAL IV PUSH (03:22)
[2024-12-15] MEDS: AMPICILLIN SODIUM 1 GM in SODIUM CHLORIDE 0.9% IV 50 ML 100 ML IVPB ×3 (04:33→12:36)
--- NOTE | 2024-12-15 06:21 | PM.IMHP ---
H&P: HPI History of Present Illness Date/Time: 12/15/24 06:21 Chief Complaint: Intrauterine at 36w PPROM Narrative: 29 yo G1 who presents at 36w after spontaneous rupture of membranes. Review of Systems Cardiovascular: Cardiovascular: Denies chest pain, Denies leg edema, Denies palpitations, Denies dyspnea and Denies dyspnea on exertion Respiratory: Respiratory: Denies cough, Denies dyspnea and Denies dyspnea on exertion Gastrointestinal: Gastrointestinal: Denies abdominal pain, Denies constipation, Denies diarrhea, Denies nausea and Denies vomiting Genitourinary: Genitourinary: Denies hematuria, Denies urinary frequency, Denies dysuria, Denies pelvic pain, Denies urinary incontinence and Denies vaginal discharge Neurologic: Reports system reviewed and no additional complaints, except as documented Psychiatric: Psychiatric: Reports no additional psychiatric complaints Endocrine: Endocrine: Denies palpitations PMFSH Past Medical History Medical History Hx of migraines Asthma Surgical History Surgical History No history of previous surgery Family History Family History Grandparent Heart disease Hypertension Social History Social History Smoking status: Never smoker Alcohol intake: former Substance use: never Substance use type: does not use Do You Feel Safe in your Home?: Yes Lack of Transportation: No Lack of Food: Never True Current Housing: I Have Housing Concerned About Future Housing: No Difficulty Paying Gas/Electric Bills: No Difficulty Paying for Meds: No Currently Unemployed: No Education: Associate Degree Difficulty w/ Childcare or Family Care: No Living arrangements: with family Occupation/Education: student Gender identity (if verbalized by the patient): Female Sexual Orientation (if Verbalized by the Patient): Straight or Heterosexual Spiritual care concerns: No Meds Home Medications and Allergies Home Medications ?Medication ?Instructions ?Recorded ?Confirmed ?Type aspirin 81 mg capsule 81 mg PO DAILY #90 caps 06/16/24 12/08/24 Rx vits no.126-ferrous fum tablet PO 06/16/24 11/17/24 History 28 mg iron-folic acid 800 mcg tablet (Classic ) Allergies Allergy/AdvReac Type Severity Reaction Status Date / Time No Known Allergies Allergy Verified 12/14/24 17:14 Vital Signs Vital Signs - 24 hr 12/14/24 15:15 12/14/24 15:30 12/14/24 15:45 Temperature Pulse Rate 92 105 H 103 H Blood Pressure 130/56 L 116/83 112/66 Pulse Oximetry Oxygen Delivery 12/14/24 15:52 12/14/24 15:53 12/14/24 15:58 Temperature 97.7 F Pulse Rate Blood Pressure Pulse Oximetry 100 99 Oxygen Delivery 12/14/24 16:03 12/14/24 16:07 12/14/24 16:12 Temperature Pulse Rate Blood Pressure Pulse Oximetry 100 100 100 Oxygen Delivery 12/14/24 16:17 12/14/24 16:22 12/14/24 16:27 Temperature Pulse Rate Blood Pressure Pulse Oximetry 100 100 100 Oxygen Delivery 12/14/24 16:46 12/14/24 16:53 12/14/24 17:01 Temperature Pulse Rate 103 H 97 Blood Pressure 125/77 114/77 Pulse Oximetry Oxygen Delivery Room Air 12/14/24 17:16 12/14/24 17:29 12/14/24 17:31 Temperature Pulse Rate 98 99 Blood Pressure 108/70 113/72 Pulse Oximetry 99 Oxygen Delivery 12/14/24 17:34 12/14/24 17:39 12/14/24 17:44 Temperature Pulse Rate Blood Pressure Pulse Oximetry 100 100 100 Oxygen Delivery 12/14/24 17:46 12/14/24 17:49 12/14/24 17:54 Temperature Pulse Rate 93 Blood Pressure 115/77 Pulse Oximetry 100 100 Oxygen Delivery 12/14/24 17:59 12/14/24 18:01 12/14/24 18:04 Temperature Pulse Rate 91 Blood Pressure 117/71 Pulse Oximetry 100 100 Oxygen Delivery 12/14/24 18:09 12/14/24 18:14 12/14/24 18:16 Temperature Pulse Rate 97 Blood Pressure 119/73 Pulse Oximetry 100 100 Oxygen Delivery 12/14/24 18:30 12/14/24 18:31 12/14/24 18:36 Temperature 99.1 F Pulse Rate 93 Blood Pressure 117/75 Pulse Oximetry 99 Oxygen Delivery 12/14/24 18:41 12/14/24 18:46 12/14/24 18:51 Temperature Pulse Rate 100 Blood Pressure 121/76 Pulse Oximetry 100 100 100 Oxygen Delivery 12/14/24 18:56 12/14/24 19:01 12/14/24 19:06 Temperature Pulse Rate 94 Blood Pressure 121/74 Pulse Oximetry 100 100 100 Oxygen Delivery 12/14/24 19:11 12/14/24 19:16 12/14/24 19:21 Temperature Pulse Rate Blood Pressure Pulse Oximetry 99 100 97 Oxygen Delivery 12/14/24 19:26 12/14/24 19:32 12/14/24 19:49 Temperature Pulse Rate 97 Blood Pressure 112/66 Pulse Oximetry 100 99 Oxygen Delivery 12/14/24 19:54 12/14/24 19:59 12/14/24 20:00 Temperature 98.2 F Pulse Rate Blood Pressure Pulse Oximetry 100 100 Oxygen Delivery 12/14/24 20:01 12/14/24 20:04 12/14/24 20:09 Temperature Pulse Rate 90 Blood Pressure 118/69 Pulse Oximetry 99 100 Oxygen Delivery 12/14/24 20:14 12/14/24 20:15 12/14/24 20:17 Temperature Pulse Rate 106 H 98 Blood Pressure 117/90 103/52 L Pulse Oximetry 100 Oxygen Delivery 12/14/24 20:18 12/14/24 20:19 12/14/24 20:21 Temperature Pulse Rate 98 120 H Blood Pressure 122/72 123/83 Pulse Oximetry 100 Oxygen Delivery 12/14/24 20:24 12/14/24 20:26 12/14/24 20:29 Temperature Pulse Rate 103 H 98 104 H Blood Pressure 123/58 L 111/62 73/49 L Pulse Oximetry 99 100 Oxygen Delivery 12/14/24 20:32 12/14/24 20:34 12/14/24 20:36 Temperature Pulse Rate 93 81 87 Blood Pressure 115/69 112/74 110/62 Pulse Oximetry 100 Oxygen Delivery 12/14/24 20:38 12/14/24 20:39 12/14/24 20:41 Temperature Pulse Rate 100 88 Blood Pressure 107/67 109/63 Pulse Oximetry 100 Oxygen Delivery 12/14/24 20:43 12/14/24 20:44 12/14/24 20:46 Temperature Pulse Rate 93 90 Blood Pressure 103/69 106/70 Pulse Oximetry 100 Oxygen Delivery 12/14/24 20:48 12/14/24 20:51 12/14/24 20:54 Temperature Pulse Rate 94 87 85 Blood Pressure 101/69 112/70 114/68 Pulse Oximetry 98 Oxygen Delivery 12/14/24 20:56 12/14/24 20:59 12/14/24 21:01 Temperature Pulse Rate 99 70 82 Blood Pressure 108/74 108/61 116/59 L Pulse Oximetry Oxygen Delivery 12/14/24 21:04 12/14/24 21:06 12/14/24 21:09 Temperature Pulse Rate 80 86 86 Blood Pressure 109/64 113/73 119/75 Pulse Oximetry Oxygen Delivery 12/14/24 21:11 12/14/24 21:13 12/14/24 21:16 Temperature Pulse Rate 108 H 81 101 H Blood Pressure 113/61 114/70 96/63 L Pulse Oximetry Oxygen Delivery 12/14/24 21:18 12/14/24 21:21 12/14/24 21:24 Temperature Pulse Rate 82 90 80 Blood Pressure 111/62 112/60 107/63 Pulse Oximetry Oxygen Delivery 12/14/24 21:26 12/14/24 21:27 12/14/24 21:28 Temperature Pulse Rate 116 H 83 Blood Pressure 74/51 L 107/57 L Pulse Oximetry 100 Oxygen Delivery 12/14/24 21:29 12/14/24 21:31 12/14/24 21:32 Temperature Pulse Rate 83 74 Blood Pressure 101/65 110/65 Pulse Oximetry 99 Oxygen Delivery 12/14/24 21:36 12/14/24 21:37 12/14/24 21:41 Temperature Pulse Rate 85 90 Blood Pressure 100/64 105/64 Pulse Oximetry 100 97 Oxygen Delivery 12/14/24 21:46 12/14/24 21:51 12/14/24 21:54 Temperature Pulse Rate 94 82 Blood Pressure 102/60 111/65 Pulse Oximetry 100 Oxygen Delivery 12/14/24 21:56 12/14/24 21:59 12/14/24 22:00 Temperature 98.8 F Pulse Rate 98 Blood Pressure 105/68 Pulse Oximetry 100 Oxygen Delivery 12/14/24 22:01 12/14/24 22:04 12/14/24 22:06 Temperature Pulse Rate 80 75 Blood Pressure 113/59 L 103/68 Pulse Oximetry 100 Oxygen Delivery 12/14/24 22:09 12/14/24 22:11 12/14/24 22:14 Temperature Pulse Rate 71 Blood Pressure 105/68 Pulse Oximetry 100 100 Oxygen Delivery 12/14/24 22:16 12/14/24 22:19 12/14/24 22:21 Temperature Pulse Rate 71 74 Blood Pressure 102/64 107/70 Pulse Oximetry 100 Oxygen Delivery 12/14/24 22:24 12/14/24 22:26 12/14/24 22:29 Temperature Pulse Rate 74 Blood Pressure 110/64 Pulse Oximetry 100 100 Oxygen Delivery 12/14/24 22:31 12/14/24 22:34 12/14/24 22:36 Temperature Pulse Rate 71 71 Blood Pressure 106/59 L 108/64 Pulse Oximetry 100 Oxygen Delivery 12/14/24 22:39 12/14/24 22:41 12/14/24 22:44 Temperature Pulse Rate 67 Blood Pressure 107/59 L Pulse Oximetry 100 100 Oxygen Delivery 12/14/24 22:46 12/14/24 22:49 12/14/24 22:51 Temperature Pulse Rate 68 66 Blood Pressure 100/59 L 107/59 L Pulse Oximetry 100 Oxygen Delivery 12/14/24 22:54 12/14/24 22:56 12/14/24 22:59 Temperature Pulse Rate 88 Blood Pressure 115/69 Pulse Oximetry 100 100 Oxygen Delivery 12/14/24 23:01 12/14/24 23:04 12/14/24 23:06 Temperature Pulse Rate 77 67 Blood Pressure 106/70 108/60 Pulse Oximetry 100 Oxygen Delivery 12/14/24 23:09 12/14/24 23:11 12/14/24 23:14 Temperature Pulse Rate 84 Blood Pressure 116/77 Pulse Oximetry 100 100 Oxygen Delivery 12/14/24 23:16 12/14/24 23:19 12/14/24 23:21 Temperature Pulse Rate 123 H 220 H Blood Pressure 118/86 146/103 H Pulse Oximetry 100 100 Oxygen Delivery 12/14/24 23:26 12/14/24 23:27 12/14/24 23:31 Temperature Pulse Rate 115 H 222 H Blood Pressure 135/53 L 77/53 L Pulse Oximetry 98 100 Oxygen Delivery 12/14/24 23:36 12/14/24 23:40 12/14/24 23:41 Temperature Pulse Rate 160 H 94 Blood Pressure 99/43 L 107/44 L Pulse Oximetry 100 100 Oxygen Delivery 12/14/24 23:46 12/14/24 23:51 12/14/24 23:56 Temperature Pulse Rate 125 H Blood Pressure 95/57 L Pulse Oximetry 100 100 100 Oxygen Delivery 12/15/24 00:00 12/15/24 00:01 12/15/24 00:06 Temperature 98.1 F Pulse Rate 101 H Blood Pressure 108/71 Pulse Oximetry 100 98 Oxygen Delivery 12/15/24 00:11 12/15/24 00:16 12/15/24 00:19 Temperature Pulse Rate 80 89 Blood Pressure 113/98 H 99/64 L Pulse Oximetry 99 100 Oxygen Delivery 12/15/24 00:21 12/15/24 00:26 12/15/24 00:31 Temperature Pulse Rate 70 Blood Pressure 103/56 L Pulse Oximetry 100 98 99 Oxygen Delivery 12/15/24 00:36 12/15/24 00:41 12/15/24 00:46 Temperature Pulse Rate 105 H Blood Pressure 84/56 L Pulse Oximetry 100 99 100 Oxygen Delivery 12/15/24 00:51 12/15/24 00:56 12/15/24 01:01 Temperature Pulse Rate 74 Blood Pressure 110/66 Pulse Oximetry 100 99 100 Oxygen Delivery 12/15/24 01:06 12/15/24 01:11 12/15/24 01:16 Temperature Pulse Rate 82 Blood Pressure 103/69 Pulse Oximetry 100 100 100 Oxygen Delivery 12/15/24 01:21 12/15/24 01:26 12/15/24 01:31 Temperature Pulse Rate 88 Blood Pressure 100/64 Pulse Oximetry 100 100 100 Oxygen Delivery 12/15/24 01:36 12/15/24 01:41 12/15/24 01:46 Temperature Pulse Rate 149 H Blood Pressure 111/68 Pulse Oximetry 97 100 100 Oxygen Delivery 12/15/24 01:51 12/15/24 01:56 12/15/24 02:00 Temperature 97.8 F Pulse Rate Blood Pressure Pulse Oximetry 100 100 Oxygen Delivery 12/15/24 02:01 12/15/24 02:06 12/15/24 02:11 Temperature Pulse Rate 161 H Blood Pressure 87/58 L Pulse Oximetry 100 100 99 Oxygen Delivery 12/15/24 02:16 12/15/24 02:21 12/15/24 02:26 Temperature Pulse Rate 82 Blood Pressure 101/59 L Pulse Oximetry 100 100 99 Oxygen Delivery 12/15/24 02:31 12/15/24 02:36 12/15/24 02:41 Temperature Pulse Rate 80 Blood Pressure 93/61 L Pulse Oximetry 100 99 99 Oxygen Delivery 12/15/24 02:46 12/15/24 02:51 12/15/24 02:56 Temperature Pulse Rate 84 Blood Pressure 90/60 L Pulse Oximetry 99 99 100 Oxygen Delivery 12/15/24 03:01 12/15/24 03:06 12/15/24 03:11 Temperature Pulse Rate 97 Blood Pressure 98/68 L Pulse Oximetry 100 100 100 Oxygen Delivery 12/15/24 03:16 12/15/24 03:21 12/15/24 03:26 Temperature Pulse Rate 132 H Blood Pressure 137/50 L Pulse Oximetry 100 100 100 Oxygen Delivery 12/15/24 03:31 12/15/24 03:36 12/15/24 03:41 Temperature Pulse Rate 82 Blood Pressure 102/53 L Pulse Oximetry 100 99 99 Oxygen Delivery 12/15/24 03:46 12/15/24 03:51 12/15/24 03:54 Temperature Pulse Rate 85 Blood Pressure 95/53 L Pulse Oximetry 100 99 100 Oxygen Delivery 12/15/24 03:59 12/15/24 04:01 12/15/24 04:15 Temperature Pulse Rate 98 Blood Pressure 107/66 Pulse Oximetry 99 100 Oxygen Delivery 12/15/24 04:16 12/15/24 04:20 12/15/24 04:25 Temperature Pulse Rate 91 Blood Pressure 111/69 Pulse Oximetry 99 100 Oxygen Delivery 12/15/24 04:30 12/15/24 04:31 12/15/24 04:35 Temperature Pulse Rate 86 Blood Pressure 116/62 Pulse Oximetry 100 100 Oxygen Delivery 12/15/24 04:40 12/15/24 04:45 12/15/24 04:46 Temperature Pulse Rate 88 Blood Pressure 111/67 Pulse Oximetry 100 99 Oxygen Delivery 12/15/24 04:50 12/15/24 04:55 12/15/24 05:00 Temperature Pulse Rate Blood Pressure Pulse Oximetry 99 99 99 Oxygen Delivery 12/15/24 05:01 12/15/24 05:05 12/15/24 05:10 Temperature Pulse Rate 79 Blood Pressure 112/61 Pulse Oximetry 99 100 Oxygen Delivery 12/15/24 05:15 12/15/24 05:16 12/15/24 05:20 Temperature Pulse Rate 84 Blood Pressure 109/65 Pulse Oximetry 100 100 Oxygen Delivery 12/15/24 05:25 12/15/24 05:30 12/15/24 05:31 Temperature Pulse Rate 93 Blood Pressure 114/67 Pulse Oximetry 100 100 Oxygen Delivery 12/15/24 05:35 12/15/24 05:40 12/15/24 05:45 Temperature Pulse Rate Blood Pressure Pulse Oximetry 100 100 100 Oxygen Delivery 12/15/24 05:46 12/15/24 05:50 12/15/24 05:55 Temperature Pulse Rate 113 H Blood Pressure 118/74 Pulse Oximetry 99 99 Oxygen Delivery 12/15/24 06:00 12/15/24 06:01 12/15/24 06:05 Temperature Pulse Rate 95 Blood Pressure 116/69 Pulse Oximetry 98 99 Oxygen Delivery 12/15/24 06:10 12/15/24 06:15 12/15/24 06:16 Temperature Pulse Rate 90 Blood Pressure 115/66 Pulse Oximetry 99 100 Oxygen Delivery 12/15/24 06:20 Temperature Pulse Rate Blood Pressure Pulse Oximetry 98 Oxygen Delivery Exam Const: General: no acute distress Eyes: EOM: EOMs intact bilaterally Neck: Neck: supple Thyroid: thyroid normal Chest: Breast/axilla inspection: normal inspection of the breasts Breast/axilla palpation: normal palpation of the breasts, normal palpation of the axillae and no axillary lymphadenopathy Resp: Effort & Inspection: normal respiratory effort Auscultation: clear to auscultation bilaterally Cardio: Rate: regular rate Rhythm: regular rhythm GI: Inspection: non-distended and other (Gravid) GI Palp: Yes Soft to palpation, No Tenderness to palpation present (GI) and No Guarding due to palpation present (GI) Auscultation: normal bowel sounds : Speculum Exam - Vagina: No vaginal bleeding OB/external & speculum: external exam normal; No vaginal bleeding Skin: General skin exam: normal color and no rashes or lesions noted Neuro: Cognition (Neuro): normal cognition Speech: normal speech Extrem: General: normal to inspection Psych: Mental Status: mental status grossly normal Affect: normal affect H&P: Results Labs Labs: Short CBC 12/14/24 Range/Units 16:03 WBC 12.4 H (4.5-10.0) K/mm3 Hgb 11.9 L (12.0-15.0) g/dL Hct 35.6 L (37.0-47.0) % Plt Count 358 (150-375) k/mm3 Assessment and Plan Assessment and plan (1) : Code(s): Z34.90 - Encounter for supervision of normal , unspecified, unspecified trimester Status: Acute Assessment and Plan: 29 yo G1 at 36w who presents after PPROM admit to L&D routine admission orders GBS neg continuous EFM epidural PRN (2) premature rupture of membranes: Code(s): O42.919 - premature rupture of membranes, unspecified as to length of time between rupture and onset of labor, unspecified trimester Status: Acute
[2024-12-15] MEDS: LACTATED RINGERS 1,000 ML 125 ML IV CONT (06:55)
[2024-12-15] MEDS: FAMOTIDINE 20 MG/2 ML VIAL IV PUSH (07:37)
[2024-12-15] MEDS: SODIUM CHLORIDE 0.9% IV 300 ML 600 ML I-UTERINE (13:45)
--- NOTE | 2024-12-15 14:39 | PM.OBPRVD ---
OB - Vaginal Delivery Note Procedure Delivery date: 12/15/24 Events: Premature Rupture of Membranes Induction method: None Delivery augmentation: Pitocin Delivery monitor: External FHT and Internal Uterine Route of delivery: Episiotomy description: None Laceration Description: Perineal - 2nd Degree Delivery repair: vicryl Specimen: Yes (placenta) Quantitative Blood Loss (ml): 200 Anesthesia type: Epidural Disposition: Floor Complications: No immediate complications Narrative: Patient pushed for a spontaneous vaginal delivery. A nuchal x 3 was noted and reduced on the perineum. The fetus was delivered atraumatically and placed on the maternal abdomen. The cord was clamped and cut after 1 minute of life. The cord was double clamped and cut and a segment of cord was collected for cord gases. Cord blood was collected for blood type and Coomb's testing. The placenta delivered spontaneously and was noted to be intact. The perineum was inspected and a 2nd degree perineal laceration and right labial lacerations were noted. The lacerations were repaired with 3-0 vicryl in a running fashion. The fundus was noted to be firm and good hemostasis was noted. The mom and were stable in the delivery room. [place] Baby Date of : 12/15/24 Time of : 14:21 Gestational Age by Date: 36 gender: Male presentation: vertex position: Right Occiput Anterior Placenta delivery description: Spontaneous Cord Vessel Description: 3 Vessels and Nuchal Cord (x3) score one minute: 9 score five minutes: 9
[2024-12-15] MEDS: OXYTOCIN 30 UNITS/NS 500 ML 30 UNITS/500 ML BAG 125 UNITS IV CONT (14:52)
--- NOTE | 2024-12-15 14:56 | S_PTH ---
PATIENT: Kayla Navarrete LOC: [facility] U#:[id number] AGE/SX: 29/F ROOM: 283 RE12/14/[address]: Fantasma Croft MD : 1995 BED: 00 DIS: 12/17/2024 SPEC #: [id number] RECD: 12/16/24 07:03 STATUS: ROSARIO REQ #: [id number] PORFIRIO: 12/15/24 14:[address]: Fantasma Croft DEPT: [facility] Surgical RECD BY: Lyn Medeiros ENTERED: 12/16/24 07:04 SP TYPE: Surgical OTHR DR: Marshall Arenas MD PHYSICIAN NOT ON STAFF Tissues: A - Placenta Procedures: Hematoxylin and Eosin Stain Gross and Microscopic Level 5
[2024-12-15] MEDS: IBUPROFEN 600 MG TABLET PO ×2 (15:57→22:33)
[2024-12-15] MEDS: BENZOCAINE 20% AER SPR (*SP) 56 GM CAN 1 SPRAY TOPICAL ×2 (16:23→20:19)
[2024-12-15] MEDS: WITCH HAZEL 40 PADS 1 PAD TOPICAL ×2 (16:23→20:19)
[2024-12-15] MEDS: ACETAMINOPHEN 325 MG TABLET 650 MG PO (20:19)
[2024-12-15] MEDS: LANOLIN (LANSINOH) 7.5 GM CREAM 1 APPLIC TOPICAL (20:19)
--- NOTE | 2024-12-15 20:30 | OBPPTRN ---
Patient transferred to post room #283 via wheelchair at 1820. Support person present. Oriented to unit, room, information board, rooming in, admission packet and security measures. Patient verbalizes understanding.
[2024-12-15] MEDS: LACTATED RINGERS 1,000 ML 500 ML IV CONT (22:30)
[2024-12-16] VITALS: BP 106/60; PULSE 85; RESP 15; TEMP 36.1; O2SAT 97
[2024-12-16] MEDS: ACETAMINOPHEN 325 MG TABLET 650 MG PO ×4 (02:11→23:44)
[2024-12-16] MEDS: IBUPROFEN 600 MG TABLET PO ×4 (04:24→21:52)
[2024-12-16 04:30] VITALS: BP 97/63; PULSE 89; RESP 16; TEMP 35.9; O2SAT 98
[2024-12-16 05:27] LABS: Hematocrit 26.7 % (37.0-47.0); Hemoglobin 8.6 g/dL (12.0-15.0)
[2024-12-16 05:51] LABS: Anion Gap 4 mmol/L (4-12); Blood Urea Nitrogen 5 mg/dL (7-17); Calcium 7.8 mg/dL (8.4-10.2); Carbon Dioxide 21 mmol/L (22-30); Chloride 107 mmol/L (98-107); Estimated CRCL calculation 135 ml/min; Estimated Glomerular Filt Rate > 60; Glucose 92 mg/dL (65-110); Potassium 3.6 mmol/L (3.4-5.0); Sodium 132 mmol/L (137-145)
[2024-12-16 07:40] VITALS: BP 99/60; PULSE 76; RESP 18; TEMP 36.4; O2SAT 99
--- NOTE | 2024-12-16 08:01 | P.PNOB_ITS ---
OB - PN: Subj Subjective Date/time seen: 12/16/24 08:01 Patient comments: no complaints, pain well controlled and tolerating diet [place] feeding status: exclusively breast feeding Narrative: patient doing well this AM. No complaints. Pain is well controlled. She reports minimal bleeding. She is ambulating and voiding without difficulty. She is tolerating PO. She denies N/V, fever, chills. She struggled with urinary retention overnight. She now has a murillo catheter in place. OB - PN: Obj Data Labs 12/16/24 04:12 12/16/24 04:12 Labs: Laboratory Results - last 24 hr 12/16/24 04:12 Hgb 8.6 L D Hct 26.7 L Sodium 132 L Potassium 3.6 Chloride 107 Carbon Dioxide 21 L Anion Gap 4 BUN 5 L Creatinine 0.68 L Estim Creat Clear Calc 135 Estimated GFR > 60 Glucose 92 Calcium 7.8 L OB - PN A/P Plan day: 1 Plan: routine care Comments: patient doing well H/H 8.08/27, asymptomatic VSS had decreased urinary output murillo catheter in place, making good urine will monitor urine output s/p IV fluid bolus continue routine care Time Spent With Patient Time: Total time spent is greater than 50% in coordination of care (as documented) at patient's floor/unit and/or counseling patient: Time with patient: less than 15 minutes Review of Systems 2 Review of Systems: All systems reviewed & are unremarkable except as noted in HPI and below Exam 2 Const: General: comfortable and no acute distress Resp: Effort & Inspection: normal respiratory effort Cardio: Rate: regular rate GI: GI Palp: Yes Soft to palpation and No Tenderness to palpation present (GI) Auscultation: normal bowel sounds Other: fundus firm and below umbilicus. Psych: Affect: normal affect
[2024-12-16] MEDS: MULTIVIT/MIN/PREN/FOL AC/IRON TABLET 1 TAB PO (09:40)
--- NOTE | 2024-12-16 10:30 | PC.NURSE ---
Consulted with patient to assess needs related to . Discussed with mother her successes, concerns and any questions she has. Per mother she was given the shield yesterday and has been latching well, she is able to feel tugging and pulling when the breast feeds, she is also using a breast pump, encouraged her to use the pump after each feeding to protect her milk supply, infant is also receiving formula supplementation as needed. We reviewed working with the infant, supporting breast, protecting her nipples with an optimal deep latch, good positioning, and good hand washing. Encouraged understanding the benefits of skin to skin, responding to feeding cues, frequencies of feeding 8-12 times in 24 hours (approximately 2-3 hours), duration of feedings, milk production, intake/output feeding sheet and signs of adequate intake encouraging swallowing at the breast. Reviewed positioning and alignment, supporting breast, off-centered (asymmetrical latch) and leading with the chin with big, open, wide gape. Infant latched optimally to the [right] breast in [football] position with the nipple shield. Education given to the mother of how to visualize the suckling (with good rocking jaw motion) swallows (dropping of the lower jaw) and how to listen for drinking at the breast (the ka sound). The infant was [able] to maintain latch without discomfort to mother. Nipple care reviewed, good positioning, cleaning of the nipple shield and using clean hands when touching her breast. Resources used to facilitate learning were used from the [visual handouts/ tool/mom and baby guide]. Mother voiced understanding of the education shared, to call for assistance if the does not latch or if there is discomfort with . Reported to the Primary RN.
[2024-12-16 12:03] VITALS: BP 97/55; PULSE 81; RESP 16; TEMP 36.9; O2SAT 97
[2024-12-16 20:20] VITALS: BP 111/68; PULSE 70; RESP 16; TEMP 36.4; O2SAT 100
[2024-12-17] MEDS: IBUPROFEN 600 MG TABLET PO (05:09)
[2024-12-17 07:25] VITALS: BP 109/63; PULSE 78; RESP 16; TEMP 36.3; O2SAT 99
[2024-12-17 08:00] VITALS: PULSE 78; RESP 16; O2SAT 99
[2024-12-17] MEDS: ACETAMINOPHEN 325 MG TABLET 650 MG PO (08:40)
[2024-12-17] MEDS: DOCUSATE SODIUM 100 MG CAPSULE PO (08:43)
[2024-12-17] MEDS: MULTIVIT/MIN/PREN/FOL AC/IRON TABLET 1 TAB PO (08:44)
--- NOTE | 2024-12-17 09:11 | P.DS_ITS ---
DS: Admitting Diagnosis Discharge Date 12/17/24 Admitting Diagnosis premature rupture of membrane DS: Discharge Diagnosis Discharge Diagnosis (1) Normal vaginal delivery: Code(s): O80 - Encounter for full-term uncomplicated delivery Status: Acute OB - DS: Summary OB Procedures : None OB Procedures Intrapartum: Spontaneous Vag Delivery OB Procedures: : None Peripartum Data Laceration Description: Perineal - 2nd Degree Episiotomy description: None Status at Discharge Functional status at discharge: independent ambulation Overall status at discharge: patient is back to baseline Time Spent with Patient Time attestation: Total time spent providing and/or coordinating discharge services: Time spent: Less than 30 minutes Exam Const: General: comfortable and no acute distress Resp: Effort & Inspection: normal respiratory effort Auscultation: clear to auscultation bilaterally Cardio: Rate: regular rate GI: GI Palp: Yes Soft to palpation Auscultation: normal bowel sounds Other: Fundus firm below umbilicus Psych: Appearance: grossly normal Mental Status: mental status grossly normal Affect: normal affect DS: Data Data Completed and Pending Completed studies during hospitalization: Pending at discharge 12/15/24 14:56 Surgical [PTH] Routine Discharge Plan Discharge Discharging Clinician: Fantasma Croft Patient Disposition: Home Activity: as tolerated and pelvic rest Diet: regular Patient Instructions: Antibiotic Form Patient Language: Upper Sorbian Stand Alone Forms: General Discharge Information Follow-up/Referrals: Fantasma Croft MD [Physician, [employer]] - 4 Weeks Discharge Medications: New ibuprofen 600 mg tablet 600 mg PO Q6H PRN (Reason: pain) Qty: 30 0RF acetaminophen 500 mg tablet 500 mg PO Q6H PRN (Reason: pain) Qty: 30 0RF ferrous sulfate 325 mg (65 mg iron) tablet 325 mg PO DAILY Qty: 90 0RF Continued Classic 28 mg iron- 800 mcg tablet PO Discontinued aspirin 81 mg capsule 81 mg PO DAILY Qty: 90 0RF Date of admission: 12/14/24 15:00 Primary Care Provider: PHYSICIAN NOT ON STAFF,NONSTAFF Admitting Provider: Marshall Arenas Attending physician on admission: Marshall Arenas Condition: Stable
--- NOTE | 2024-12-17 10:10 | PC.NURSE ---
Addendum entered by Valerie Kearney RN 12/17/24 10:35: Mother declined [facility] Referral. Original Note: Consulted with mother concerning needs and she shared her ability to independently latch without pain while using the nipple shield, she is also using a breast pump and supplementing. Mother is feeding appropriately for growth of and understands stimulating to eat if needed. has had appropriate feedings in the last 24 hours meets the outcomes for weight, output, blood sugar and jaundice at this time. Reinforced understanding of milk production, transition of milk, signs of adequate intake, transition of stool, prevention/relief of engorgement, plugged ducts, mastitis, responsive watching for feeding cues, the different methods of stimulating to breastfeed 1-3 hours after the start of the last feeding, community resources, and when to call a provider using the resource of the feeding sheet along with the mom and baby guide. Mother voiced understanding of the information shared, is confident to continue effectively feed her at home, when to call for assistance, denies any additional assistance or education at this time. Reported to the Primary RN.
[2024-12-19 11:07] VITALS: BP 120/73; PULSE 74; RESP 18; TEMP 36.9; O2SAT 99
== END 2024-12-17 17:55 | disposition home or self-care (01) | DRG 807 ==
LOC: ANHOBOP 15:03 → ANHOBPP 15:03 → ANHOBOP 15:49 → ANHLDR 20:11 → ANHOB2 12-17 09:13 → ANHLDR 12-18 10:48 → ANHOB2 12-18 10:48
PROVIDERS: Obstetrics & Gynecology; Admitting Provider Student in an Organized Health Care Education/Training Program; Visit Provider Student in an Organized Health Care Education/Training Program
DX: O42.013 Preterm premature rupture of membranes, onset of labor within 24 hours of rupture, third trimester (principal); Z37.0 Single live birth; Z3A.36 36 weeks gestation of pregnancy; O62.3 Precipitate labor; O70.1 Second degree perineal laceration during delivery; O69.81X0 Labor and delivery complicated by cord around neck, without compression, not applicable or unspecified
CPT/HCPCS: 36415; 80048; 85014; 85018; 85025; 86593; 86850; 86900; 86901; 88307; A9270; J0290; J2405; J2590; J2795; J7030; J7120